=== PATIENT | female | born 1955 | race Caucasian/White ===

== ENCOUNTER 2016-03-27 11:19 | Inpatient (IN) | payer MEDICARE ==
[~2016-03-27] VITALS: Ht 157.5 cm; Wt 69.4 kg
[~2016-03-27 11:19] MED LIST: ALDACTONE25 MG PO; BOUDREAUXS113 GM TP; CARAFATE1 G PO; DIFLUCAN100 MG PO; ELIQUIS2.5 MG PO; FLAGYL500 MG PO; K-DUR20 MEQ PO; LACTINEX C1 TAB.CHEW PO; LASIX20 MG PO; LASIX40 MG PO; LOPRESSOR25 MG PO; LOTRISONE CREAM45 GM TP; MAG-OXIDE400 MG PO; MELATONIN 3 MG1 TAB PO; MS CONTIN15 MG PO; MYCOSTATIN 500,05 ML PO; NEURONTIN 100100 MG PO; NEURONTIN 400400 MG PO; PEPCID20 MG PO; PERCOCET 5-3251 TAB PO; PHOS-NAK PAC1 PACKET PO; TYLENOL PM1 TAB PO; VENTOLIN HFA18 GM INH; [UNRECOGNIZED DRUG - OTHER] PO
[2016-03-27 13:07] LABS: BASOPHILS 0.1 % (0.0-2.0); EOSINOPHILS 0.6 % (0-7); HEMATOCRIT 34.2 % (36.0-48.0); HEMOGLOBIN 11.1 g/dL (12-16); IMMATURE GRANULOCYTES 0.1 % (0-5); LYMPHOCYTES 20.9 % (15-50); MCH 31.4 pg (26.0-34.0); MCHC 32.5 g/dL (31.0-37.0); MCV 96.9 fL (80.0-100.0); MEAN PLATELET VOLUME 9.1 fL (7.4-10.4); MONOCYTES 5.8 % (2-11); NEUTROPHILS 72.5 % (40-80); RBC 3.53 10x6/uL (4.00-5.40); RDW 14.5 % (11.5-14.5); WBC 8.9 10x3/uL (4.8-10.8)
[2016-03-27 13:14] LABS: PLATELET COUNT 208 10x3/uL (130-400)
[2016-03-27 13:15] LABS: APTT 24.2 SECONDS (22.8-39.4); INR 1.07 (0.85-1.17); PROTIME 13.7 SECONDS (11.6-15.0)
[2016-03-27 13:19] LABS: ALBUMIN 3.1 g/dL (3.4-5.0); ALKALINE PHOSPHATASE 75 U/L (46-116); ALT (SGPT) 10 U/L (10-68); BILIRUBIN - TOTAL 0.26 mg/dL (0.2-1.3); CALC OSMOLALITY 272 mosm/kg (275-300); CALCIUM 8.4 mg/dL (8.5-10.1); CARBON DIOXIDE 25.8 mmol/L (21.0-32.0); CHLORIDE - SERUM 103 mmol/L (98-107); CREATININE - SERUM 0.7 mg/dL (0.6-1.3); GLUCOSE 89 mg/dL (74-106); POTASSIUM - SERUM 4.1 mmol/L (3.5-5.1); PROTEIN - SERUM 7.2 g/dL (6.4-8.2); SODIUM 137 mmol/L (136-145); UREA NITROGEN 13 mg/dL (7-18); eGFR NON AFRICAN AMERICAN 90 mL/min (90-120)
--- NOTE | 2016-03-27 15:00 | NUR ---
RECIEVED PT TO ROOM 2208 FROM ER WITH NOTED FX OF FEMORAL HEAD PAIN UNCONTROLLED AT TIME OF TRANSFER FROM ER. ER NURSE STATED SHE HAD TOTAL OF 8 MG MORPHINE ON BOARD WITH LITTLE PAIN RELEIF. NEW ORDERS FROM DR MORENO FOR DILAUDID FIREARMS INSPECTOR 0.2 MG EVERY 10 MIN 4MG 4 HR LOCKOUT. PEDAL AND POPLITEAL PULSES INTACT. SPOUSE AT SIDE.
[2016-03-27 15:20] VITALS: Ht 157.5 cm; Wt 69.4 kg
[2016-03-27 16:45] VITALS: BP 117/63
--- NOTE | 2016-03-27 18:28 | NUR ---
PT GIVEN NORCO 10/325 PO FOR BREAKTHROUGH PAIN PER ORDER. GIVEN AT 1745 WITH NOTED EFFECTIVENESS.
[2016-03-27 20:30] VITALS: BP 109/57
[2016-03-28] VITALS (15 sets, daily range): BP systolic 74–124; BP diastolic 44–71
--- NOTE | 2016-03-28 07:25 | NUR ---
PATIENT RECEIVED ALERT IN MID [place] POSITION. RESPIRATIONS EVEN AND UNLABORED. ANTICIPATING SURGERY TODAY. RATES PAIN 4/10. MEDICAL STENOGRAPHER BUTTON IN REACH. DENIES NEEDS. SIDE RAILS UP X2. BED IN LOW POSITION. CALL LIGHT IN REACH.
--- NOTE | 2016-03-28 07:42 | NUR ---
PATIENT OFF FLOOR TO SURGERY VIA BED
--- NOTE | 2016-03-28 10:30 | NUR ---
PATIENT BACK TO ROOM FROM PACU VIA BED. NO SIGNS OF DISTRESS NOTED. VITAL SIGNS STABLE. FAMILY PRESENT. SIDE RAILS UP X3. BED IN LOW POSITION. CALL LIGHT AND PUBLIC INFORMATION RELATIONS MANAGER BUTTON IN REACH. SCDS ON BILATERALLY. ICE PACK TO LEFT HIP. WILL CONTINUE TO MONITOR.
[2016-03-28] MEDS ORDERED: NEURONTIN 300300 MG PO (10:37)
[2016-03-28] MEDS ORDERED: PROBIOTIC1 EAC1 PO (10:37)
--- NOTE | 2016-03-28 12:20 | NUR ---
ALERT IN HIGH LORENZO POSITION TALKING ON PHONE. NO SIGNS OF DISTRESS NOTED. SIDE RAILS UP X2. BED IN LOW POSITION. CALL LIGHT IN REACH.
--- NOTE | 2016-03-28 16:15 | NUR ---
500CC NS BOLUS INITIATED PER ORDER. DENIES NEEDS. SIDE RAILS UP X2. BED IN LOW POSITION. CALL LIGHT IN REACH.
[2016-03-28 16:38] LABS: BASOPHILS 0 % (0.0-2.0); EOSINOPHILS 0 % (0-7); IMMATURE GRANULOCYTES 0.3 % (0-5); LYMPHOCYTES 8.3 % (15-50); MCH 31.5 pg (26.0-34.0); MCHC 31.8 g/dL (31.0-37.0); MEAN PLATELET VOLUME 9.4 fL (7.4-10.4); MONOCYTES 7.4 % (2-11); PLATELET COUNT 188 10x3/uL (130-400); RDW 14.2 % (11.5-14.5); WBC 9.1 10x3/uL (4.8-10.8)
[2016-03-28 16:39] LABS: HEMATOCRIT 26.4 % (36.0-48.0); HEMOGLOBIN 8.4 g/dL (12-16); MCV 98.9 fL (80.0-100.0); RBC 2.67 10x6/uL (4.00-5.40)
--- NOTE | 2016-03-28 17:04 | NUR ---
BOLUS COMPLETE. BP 101/59
[2016-03-29] VITALS: BP 109/49
--- NOTE | 2016-03-29 03:48 | NUR ---
ASSESSED AT THE BEGINNING OF THE SHIFT. PT IS ALERT AND ORIENTED, ABLE TO VERBALZIE NEEDS. SHE HAD HER LEFT HIP DONE THIS DAY AND THE DRESSING IS DRY AND INTACT WITH NO DRAINAGE NOTED. SHE HAS A MYSQL DATABASE DEVELOPER FOR PAIN CONTROL AND STATED THAT SHE IS NOT HAVING A LOT OF PAIN. WE ARE ASSISITN HER WITH TURNING FOR COMFORT AND SHE HAS A SIMPSON FOR VOIDING. ALL MEDS HAVE BEEN TAKEN AND AT MIDNIGHT SHE WAS SLEEPING SO WE HELD THE TYLENOL. THE BED IS LOW, RAILS UP X'S 2 WITH THE CALL LIGHT AT HAND.
[2016-03-29 04:00] VITALS: BP 104/56
[2016-03-29 05:09] LABS: BASOPHILS 0 % (0.0-2.0); EOSINOPHILS 0.1 % (0-7); HEMATOCRIT 24.5 % (36.0-48.0); HEMOGLOBIN 7.9 g/dL (12-16); LYMPHOCYTES 20.8 % (15-50); MCH 31.9 pg (26.0-34.0); MCHC 32.2 g/dL (31.0-37.0); MCV 98.8 fL (80.0-100.0); MEAN PLATELET VOLUME 9.5 fL (7.4-10.4); NEUTROPHILS 65.1 % (40-80); PLATELET COUNT 182 10x3/uL (130-400); RBC 2.48 10x6/uL (4.00-5.40); RDW 14.5 % (11.5-14.5); WBC 8.5 10x3/uL (4.8-10.8)
[2016-03-29 05:39] LABS: ALBUMIN 2.4 g/dL (3.4-5.0); ALKALINE PHOSPHATASE 53 U/L (46-116); ALT (SGPT) 12 U/L (10-68); CALCIUM 7.4 mg/dL (8.5-10.1); CARBON DIOXIDE 25.6 mmol/L (21.0-32.0); CHLORIDE - SERUM 104 mmol/L (98-107); CREATININE - SERUM 0.7 mg/dL (0.6-1.3); GLUCOSE 104 mg/dL (74-106); POTASSIUM - SERUM 3.9 mmol/L (3.5-5.1); PROTEIN - SERUM 6.1 g/dL (6.4-8.2); SODIUM 138 mmol/L (136-145); eGFR NON AFRICAN AMERICAN 90 mL/min (90-120)
[2016-03-29 05:40] LABS: CALC OSMOLALITY 273 mosm/kg (275-300); UREA NITROGEN 8 mg/dL (7-18)
--- NOTE | 2016-03-29 07:20 | NUR ---
PATIENT RECEIVED ALERT IN HIGH LORENZO POSITION WATCHING TV. RESPIRATIONS EVEN AND UNLABORED. SIDE RAILS UP X2. BED IN LOW POSITION. CALL LIGHT IN REACH. DENIES NEEDS.
--- NOTE | 2016-03-29 08:35 | NUR ---
PATIENT ALERT IN HIGH LORENZO POSITION EATING BREAKFAST. TOLERATING WELL. SCHEDULED MEDICATION ADMINISTERED. SIDE RAILS UP X2. BED IN LOW POSITION. CALL LIGHT IN REACH.
--- NOTE | 2016-03-29 09:00 | NUR ---
SIMPSON CARE PROVIDED. SIMPSON D/C. APPROXIMATELY 700CC URINE REMAINED IN COLLECTION BAG. WELL TOLERATED. WILL CONINUE TO MONITOR OUTPUT
[2016-03-29 09:39] VITALS: BP 89/45
--- NOTE | 2016-03-29 11:15 | NUR ---
SITTING UP IN CHAIR ALERT. NO SIGNS OF DISTRESS NOTED. RATES PAIN 03/31. SCHEDULED MEDICATION ADMINISTERED. CALL LIGHT IN REACH. DENIES NEEDS.
[2016-03-29 12:46] VITALS: BP 93/42
--- NOTE | 2016-03-29 15:05 | NUR ---
PATIENT ALERT IN BED WATCHING TV. NO SIGNS OF DISTRESS NOTED. DENIES PAIN AND OTHER NEEDS. SIDE RAILS UP X2. BED IN LOW POSITION. CALL LIGHT IN REACH.
[2016-03-29 16:42] VITALS: BP 89/42
--- NOTE | 2016-03-29 17:15 | NUR ---
ASSISTED UP TO RESTROOM. VOIDED APPROXIMATELY 300CC WITHOUT DIFFICULTY. ASSISTED TO CHAIR AT BEDSIDE. DENIES NEEDS. CALL LIGHT IN REACH.
--- NOTE | 2016-03-29 19:15 | NUR ---
RECIEVES SHIFT REPORT. PT IS LYING IN BED. ALERT AND ORIENTED AND ABLE TO VERBALIZE NEEDS. IV IS PATENT AND SALINE LOC AT THIS TIME. O2 @ 1 PER NASAL CANNULA. DRESSING TO LEFT HIP C/D/I. SCD'S ON. PT IS AMBULATORY WITH ASSISTANCE. PT STATES PAIN IS 1/10. NO NEEDS ARE VERBALIZED AT THIS TIME. WILL CONTINUE TO MONITOR. SIDE RAILS ARE UP X 2. BED IS IN LOWEST POSITION. CALL LIGHT IS WITHIN REACH.
[2016-03-29 21:00] VITALS: BP 93/49
--- NOTE | 2016-03-29 21:27 | NUR ---
SHIFT ASSESSMENT COMPLETED. NIGHT MEDS GIVEN WITH NO PROBLEMS. NO NEEDS ARE VOICED. WILL MONITOR. SIDE RAILS X 2. BED LOW. CALL LIGHT IN REACH.
[2016-03-30 01:00] VITALS: BP 92/59
--- NOTE | 2016-03-30 02:21 | NUR ---
PT C/O PAIN 05/29. ADMINISTERED PRESCRIBED PRN OXY IR 5MG PER ORDER. DENIES FURTHER NEEDS. WILL MONITOR. SIDE RAILS X 2. BED LOW. CALL LIGHT IN REACH.
[2016-03-30 05:00] VITALS: BP 123/61
[2016-03-30 06:33] LABS: BASOPHILS 0 % (0.0-2.0); EOSINOPHILS 0.9 % (0-7); HEMATOCRIT 23.1 % (36.0-48.0); IMMATURE GRANULOCYTES 0.1 % (0-5); LYMPHOCYTES 26.5 % (15-50); MCH 31.5 pg (26.0-34.0); MCHC 31.6 g/dL (31.0-37.0); MCV 99.6 fL (80.0-100.0); NEUTROPHILS 60.5 % (40-80); PLATELET COUNT 206 10x3/uL (130-400); RBC 2.32 10x6/uL (4.00-5.40)
[2016-03-30 06:45] LABS: HEMOGLOBIN 7.3 g/dL (12-16)
[2016-03-30] MEDS ORDERED: ELIQUIS2.5 MG PO (08:02)
[2016-03-30] MEDS ORDERED: OXYCODONE HCL5 MG PO (08:03)
[2016-03-30 08:15] VITALS: BP 97/48
[2016-03-30] MEDS ORDERED: OXYCONTIN10 MG PO (08:15)
--- NOTE | 2016-03-30 08:26 | NUR ---
SCHEDULED MEDICATIONS ADMINISTERED AT THIS TIME. PAIN LEVEL 1/10 AT THIS TIME IN PT'S BACK. OXYGEN WEANED DOWN TO ROOM AIR. SATURATIONS REMAIN 94-95%. PT TO D/C HOME TODAY. DENIES FURTHER NEEDS. CALL LIGHT IN REACH, BED ALARM AND SCD'S ON. WILL CONTINUE WITH PLAN OF CARE.
--- NOTE | 2016-03-30 10:21 | NUR ---
Patient Name: AURORA TATE Admission Status: ER Accout number: [id number] Admission Date: 03-27-2016 : 1955 Admission Diagnosis: Attending: DODIE Current LOS: 3 Anticipated DC Date: 03-30-2016 Planned Disposition: Home Primary Insurance: MEDICARE A & B Discharge Planning Comments: CM SPOKE WITH PATIENT REGARDING D/C NEEDS AND PLANS. PATIENT STATED SHE LIVES WITH HER SPOUSE (RADHA) AND HE WILL PICK HER UP AT DISCHARGE. PATIENT STATED HER HOME HAS 6 STEPS W/RAILS TO ENTER AND NO STAIRS INSIDE. PATIENT IS INDEPENDENT WITH HER CARE AND HAS A WALKER, CANE, SHOWER CHAIR, AND BEDSIDE COMMODE AT HOME. PATIENTS PCP IS DR. DUKES AND PHARMACY IS [facility] [address]. PATIENT HAD HOME HEALTH WITH HER LAST HIP SURGERY BUT HAS REFUSED HOME HEALTH THIS TIME. PATIENT IS AGREEABLE FOR OP PT WITH [facility] AND HAS AN APPOINTMENT AT 2:00PM TOMORROW. CM WILL CONTINUE TO FOLLOW PATIENT WITH D/C NEEDS AND PLANS. PCP DR[facility]- [phone] RADHA (SPOUSE) [phone] [facility]- [phone] Fish Grader: Ashlie Mackenzie Is the patient Alert and Oriented? Yes 0 * How many steps to enter\exit or inside your home? 6 /RAILS 0 * PCP DR. DUKES 0 * Pharmacy [facility] [address] 0 * Preadmission Environment Home with Family 0 * ADLs Independent 0 * Equipment Bedside Commode Cane Rolling Walker Shower Chair 0 * List name and contact numbers for known caregivers / representatives who currently or will assist patient after discharge: RADHA (SPOUSE) [phone] 0 * Community resources currently utilized None 0 * Additional services required to return to the preadmission environment? Yes 0 * Can the patient safely return to the preadmission environment? Yes 0 * Has this patient been hospitalized within the prior 30 days at any hospital? No 0 Grand Total: 0
--- NOTE | 2016-03-30 11:21 | NUR ---
IV TO RIGHT FOREARM REMOVED WITH CATH TIP INTACT. DISCHARGE INSTRUCTIONS REVIEWED WITH PT AND HER . DENIES QUESTIONS OR CONCERNS. EXISTING DRESSING TO LEFT HIP REMOVED AND AQUACEL AG DRESSING PLACED OVER INCISION IN A STERILE FASHION. INSTRUCTED PT TO LEAVE DRESSING ON FOR 7 DAYS. PT VERBALIZED UNDERSTANDING. WILL NOTIFY NURSING STAFF WHEN SHE IS DRESSED AND READY FOR DISCHARGE.
--- NOTE | 2016-03-30 11:34 | NUR ---
D/C HOME AT THIS TIME VIA PRIVATE VEHICLE WITH SPOUSE THE HUMAN SERVICES SUPERVISOR. ESCORTED OUT VIA WHEELCHAIR.
--- NOTE | 2016-04-02 08:03 | OP ---
PATIENT NAME: AURORA TATE MEDICAL RECORD: [id number] :51 LOCATION:[id number] ADMISSION DATE:03/27/16 SURGEON: KEYUR GARCIA MD DATE OF OPERATION: 03/27/2016 PREOPERATIVE DIAGNOSIS: Left hip degenerative joint disease/femoral neck fracture. POSTOPERATIVE DIAGNOSIS: Left hip degenerative joint disease/femoral neck fracture. PROCEDURE PERFORMED: Left total hip arthroplasty. SURGEON: Tevin Garcia MD ANESTHESIA: General with a block for postop pain. ESTIMATED BLOOD LOSS: She had about 200 mL via EBL. CONDITION: She tolerated the procedure well, was transferred to recovery room in stable condition. INDICATIONS: This is a 60-year-old female that was scheduled in the near future for hip replacement, presented yesterday with a femoral neck fracture. Certainly, unclear etiology as to this, there did not appear to be any lesions, cannot think of any specific trauma. We discussed the options. She wanted to go and proceed with a hip replacement at this juncture. Discussed risks, benefits, and alternatives including blood loss, scar, pain, need for further procedure, anesthesia risks, nerve, artery and vein injuries, PE, DVT, and . She understood and wished to proceed. OPERATIVE REPORT: The patient was taken to the operating room, placed in supine position. General anesthesia was obtained. She did get the block in the preop holding area. Once she was in the room. She was confirmed to be on the left side. She was given Ancef per protocol. She was then placed in lateral position after timeout was done with the left hip up. Left hip was prepped and draped in normal fashion followed by a secondary ChloraPrep and Ioban dressing placement. Once this was accomplished, a lateral incision was made. This was taken down to the IT band. The IT band was split. Charnley retractor was placed. Anterior portion of the gluteus medius and capsule were taken off as a unit. I then proceeded ____ dislocate the hip sleep and made a cleanup cut on the femoral neck and placed anterior and posterior acetabular retractors and then took out the femoral head. I then took off the soft tissue from about the acetabular rim. I then proceeded to ream up to a 51 and placed a 50 trial cup, this felt very good. I therefore placed a 52 cup. I then took the leg outside the bed, did a cookie cutter and canal finder opening up the femoral canal. I then broached up to a 12, trial this, took x-rays this looked appropriate, it was slightly short, but I did used the -3. Therefore, I went ahead and plant on standard. Everything was taken out. She was copiously irrigated, I then placed a 12 stem with standard head and neck, reduce this after irrigation. I then used 2 JuggerKnot suture anchors to bring the gluteus medius and capsule back to the bone. I then closed this, following which I closed with #1 barbed PDS, then 2-0 Vicryl, then avelina. She was awakened and transferred to recovery room in stable condition, having tolerated the procedure well. OPERATIVE REPORT [id number] AURORA TATE TRANSINT:[id number] Voice Confirmation ID: [id number] DOCUMENT ID: [id number] KEYUR GARCIA MD at 0803 CC: [id number] DICTATION DATE: 03/28/16 0959 DICE TABLE PERSON: 03/28/16 1020 DIS IN 03/30/16 [facility] [address] [place] [address]
--- NOTE | 2016-04-02 08:03 | DS ---
PATIENT:AURORA TATE :[birth year] MEDICAL RECORD: [id number] DISCHARGE SUMMARY ADMISSION DATE: 03/27/16 DISCHARGE DATE: 03/30/16 DATE OF ADMISSION: 03/27/2016 DATE OF DISCHARGE: 03/30/2016 ADMITTING DIAGNOSES: Left hip degenerative joint disease/femoral neck fracture. DISCHARGE DIAGNOSES: Left hip degenerative joint disease/femoral neck fracture plus postoperative acute blood loss anemia. HISTORY OF PRESENT ILLNESS: A 60-year-old female with advanced degenerative changes of her hip. She was actually getting prepped for a total hip arthroplasty, who presented on Wednesday with hip fracture. No significant trauma. We discussed options and elected to take her for total hip arthroplasty on Wednesday. She did well with this procedure. She has gotten into a juncture now, where she has progressed enough that it look like she can be discharged home. We will discharge her on post-total hip arthroplasty protocols. Her blood is a little bit low, but we will leave ____. She has not been significantly symptomatic and we will see her back in the office in about 2 weeks, call is she having problems. Discharge diagnoses, hip degenerative joint disease and postoperative acute blood loss anemia. TRANSINT:[id number] Voice Confirmation ID: [id number] DOCUMENT ID: [id number] KEYUR LAFLEUR MD at 0803 CC: [id number] DICTATION DATE: 03/30/16 08 DATA BASE DESIGN ANALYST: 03/30/16 0824 DIS IN 03/30/16 [place] [address]
== END 2016-03-30 11:34 | disposition home or self-care (01) | DRG 470 ==
LOC: D.ER 11:19 → D.MS 13:51
PROVIDERS: Emergency Medicine; Family Medicine Adult Medicine; ADMIT Orthopaedic Surgery Sports Medicine
PROC: 0SRB0JZ Replacement of Left Hip Joint with Synthetic Substitute, Open Approach (ICD-10-PCS; principal; 2016-03-27)
DX: M80.052A Age-related osteoporosis with current pathological fracture, left femur, initial encounter for fracture (principal); D62 Acute posthemorrhagic anemia; M16.12 Unilateral primary osteoarthritis, left hip; J44.9 Chronic obstructive pulmonary disease, unspecified; Z87.891 Personal history of nicotine dependence

== ENCOUNTER 2016-10-16 11:20 | Inpatient (IN) | payer MEDICARE ==
[2016-03-27 15:20] VITALS: BMI 25.6
[~2016-10-16 11:20] MED LIST changes: +NEURONTIN 300300 MG PO; +OXYCODONE HCL5 MG PO; +OXYCONTIN10 MG PO; +PROBIOTIC1 EAC1 PO
[2016-10-16] MEDS ORDERED: ALENDRONATE SOD70 MG PO (14:19)
[2016-10-16 15:05] LABS: BASOPHILS 0.2 % (0-2); EOSINOPHILS 0.9 % (0-7); HEMATOCRIT 38.6 % (36.0-48.0); HEMOGLOBIN 12.6 g/dL (12-16); IMMATURE GRANULOCYTES 0.2 % (0-5); LYMPHOCYTES 24.9 % (15-50); MCH 31.3 pg (26.0-34.0); MCHC 32.6 g/dL (31.0-37.0); MCV 95.8 fL (80.0-100.0); MEAN PLATELET VOLUME 10.2 fL (7.4-10.4); MONOCYTES 6.8 % (2-11); PLATELET COUNT 214 10x3/uL (130-400); RBC 4.03 10x6/uL (4.00-5.40); RDW 14.9 % (11.5-14.5); WBC 11.1 10x3/uL (4.8-10.8)
[2016-10-16 15:29] LABS: CALC OSMOLALITY 281 mosm/kg (275-300); CARBON DIOXIDE 31.7 mmol/L (21.0-32.0); CHLORIDE - SERUM 103 mmol/L (98-107); CREATININE - SERUM 0.5 mg/dL (0.6-1.3); GLUCOSE 96 mg/dL (74-106); POTASSIUM - SERUM 3.7 mmol/L (3.5-5.1); SODIUM 141 mmol/L (136-145); UREA NITROGEN 14 mg/dL (7-18); eGFR NON AFRICAN AMERICAN > 90 mL/min (90-120)
--- NOTE | 2016-10-16 18:57 | NUR ---
POP BLOCK FOR PROCEEDURE
[2016-10-16 19:29] VITALS: BP 124/36
[2016-10-16 20:00] VITALS: BP 84/48
--- NOTE | 2016-10-16 20:18 | NUR ---
2000)REC'D. TO RM. 2209 VIA BED FROM REC.RM. ALERT ORIENTED X3.SITTING UP IN BED ICE CHIPS TAKEN.KNEE IMMOB.TO LEFT KNEEFOOT WARM PEDAL PULSE PRESENT.UNABLE TO WIGGLES TOES OR DORSIFLEX DUE TO PRE-OP BLK.BP NOW 117/69. WILL CONTINUE TO MONITOR FOR ANY CHGES. IN NEUROVASCULAR STATUS AND FOLLOW CURRENT PLAN OF CARE.
[2016-10-17] VITALS: BP 102/55
[2016-10-17 04:00] VITALS: BP 121/65
[2016-10-17 05:25] LABS: HEMATOCRIT 36.4 % (36.0-48.0); HEMOGLOBIN 11.8 g/dL (12-16)
--- NOTE | 2016-10-17 07:30 | NUR ---
ASSESSMENT COMPLETE. IV TO L AC PATENT. NS INFUSING AT 100 CC/HR VIA PUMP.ELIGIO WRAP DRESSING INTACT TO L KNEE. IMMOBILIZER IN USE TO L KNEE. O2 2L NC IN USE. SCD IN USE TO R LEG.
[2016-10-17 08:02] VITALS: BP 110/62
[2016-10-17] MEDS ORDERED: ATARAX 25 MG TA25 MG PO (08:16)
[2016-10-17] MEDS ORDERED: OXYCODONE HCL5 MG PO (08:16)
--- NOTE | 2016-10-17 08:19 | OP ---
PATIENT NAME: AURORA KOLB MEDICAL RECORD: [id number] :51 LOCATION:[id number] ADMISSION DATE:10/16/16 SURGEON: KP CHAVES, DATE OF OPERATION: 10/16/2016 PROCEDURE PERFORMED: A left lateral tibial plateau open reduction and internal fixation, knee. PREOPERATIVE DIAGNOSIS: Left lateral tibial plateau fracture. POSTOPERATIVE DIAGNOSIS: Left lateral tibial plateau fracture and left MCL strain. INDICATIONS: Ms. Kolb is a 61-year-old female who fell in a hole today near her well. She could not bear weight well on her left leg and has had extreme amount of pain and was taken to the Emergency Room. In the Emergency Room, she was seen and noted to have a left lateral tibial plateau fracture that was split right just over 3 mm. She had an articular split. After discussing treatments with the patient, it was decided that operative fixation would be the best way to treat this. Preoperative and postoperative protocols were discussed with the patient as well as risks and benefits of the procedure and she consented to undergo a left lateral tibial plateau open reduction internal fixation. SURGEON: Kp Chaves D.O. ASISTANT: No assistance. DESCRIPTION OF PROCEDURE: Ms. Kolb was given a popliteal block in the preoperative area and then taken back to the operating room. She was then placed in supine position on the OR bed and given general anesthesia by Anesthesia. The left lower extremity was then prepped and draped in sterile fashion. A tourniquet was placed above the knee prior to draping. A timeout was performed and all parties were in agreement, so there was correct site and side, and all parties agreed with the correct patient and she was given 2 grams of Ancef prior to beginning the surgery. At that time the incision was marked out and an Esmarch was used to exsanguinate the left lower extremity and the tourniquet was inflated. Incision was then made in a hockey stick pattern on the lateral side of the proximal tibia to just proximal to the knee joint. Careful dissection was made down through the skin to the fascia and the iliotibial band at that level which was split sharply down to the proximal tibia at the fracture site. Fracture site was then cleaned off and a submeniscal arthrotomy was performed into the knee joint. At that time, a large amounts of hematoma were drained from the knee joint itself. At the submeniscal arthrotomy site, there was made a horizontal incision just below the lateral meniscus. 2-0 Vicryls were placed into the lateral meniscus to elevate it and to inspect in the joint. There were no meniscal tears seen in the lateral meniscus at that time and the joint depression was noted in the posterior aspect of the fracture. At that time the fracture was then reduced using a periarticular forceps with a plate and K-wires placed through the plate. An x-ray was taken and a reduction was performed one more time. This time, the fracture site was cleaned out more thoroughly and the reduction was made and the articular surface was noted to be reduced and 2 K-wires were placed just in the subchondral bone of the lateral plateau. The plate was then placed on the lateral aspect just over the fracture site and K-wires were placed in the plate at that time as well as the periarticular reduction clamp placed in the plate to hold the reduction and the OPERATIVE REPORT [id number] AURORA KOLB plate in place. Cortical screws were then used to secure the plate to the bone and to reduce the fracture. Locking screws were used in the proximal holes to that across the subchondral bone area. A distal locking screw was then placed into the plate and the bone, the very distal hole and the kickstand screws were placed at that time. The cortical screws were then revisited and 2 of the cortical screws were replaced with locking screws. The clamps were removed at that time and the joint was irrigated with copious amounts of normal saline as well as the wound. All the hardware was placed using fluoroscopic guidance. The site of the arthrotomy was then repaired using 0 Vicryl and the sutures were taken out of the lateral meniscus prior to that. Once the arthrotomy was repaired, more irrigation was used and the soft tissue, fascia as well with the IT band was closed over the plate with a 0 Vicryl. The wound was then irrigated again and the skin was closed with 2-0 Vicryl in inverted interrupted fashion and 4-0 Monocryl was run subcuticularly on the skin. The tourniquet was then let down at that time at 91 minutes. Pressure was held over the wounds to stop any of the oozing. In the site of the medial side where the periarticular force a reduction clamp, an incision then made for it was also closed using inverted interrupted 4-0 Monocryl. Steri-Strips were then placed over the wound. Adaptic, 4 x 4's, ABD and Webril was then placed and an Silverio wrap was placed over the knee itself and the patient's knee was tested prior to this after the fixation The skin was closed and noted to have a grade II MCL strain. Then, the knee immobilizer was placed. The patient as well as all the dressings were secured and the patient was awake and in stable condition and taken to PACU for recovery. Total blood loss was 100 mL. TRANSINT:[id number] Voice Confirmation ID: [id number] DOCUMENT ID: [id number] KP CHAVES DO at 0819 CC: [id number] DICTATION DATE: 10/16/161936 SHOPFITTER: 10/17/16236 ADM IN [facility] [address] [id number]
[2016-10-17] MEDS ORDERED: KEFLEX500 MG PO (08:21)
--- NOTE | 2016-10-17 09:56 | NUR ---
UP AMBULATING WITH PHYSICAL THERAPY. DENIES ANY NEEDS AT PRESENT.
--- NOTE | 2016-10-17 11:50 | NUR ---
IV REMOVED. CATHETER TIP INTACT. DISCHARGE TEACHING GIVEN TO PATIENT AND . SCRIPTS X 2 GIVEN TO . WALKER DELIVERED.
--- NOTE | 2016-10-17 12:05 | NUR ---
DC'D HOME WITH FAMILY. ESCORTED TO VEHICLE VIA WC BY PATTERNMAKER HAND WITH BELONGINGS AND WALKER.
--- NOTE | 2016-10-17 12:59 | NUR ---
Is the patient Alert and Oriented? Yes 0 * How many steps to enter\exit or inside your home? five 0 * PCP DR Vaughan 0 * Pharmacy [facility] on [address] 0 * Preadmission Environment Home with Family 0 * ADLs Independent 0 * Equipment Walker 0 * Other Equipment Raised toilet seat, bulit in shower chair, safety bars in shower 0 * List name and contact numbers for known caregivers / representatives who currently or will assist patient after discharge: Efren Kolb- [phone] 0 * Community resources currently utilized None 0 * Please name any agencies selected above. N/A 0 * Additional services required to return to the preadmission environment? No 0 * Can the patient safely return to the preadmission environment? Yes 0 * Has this patient been hospitalized within the prior 30 days at any hospital? Yes 0
--- NOTE | 2016-10-17 14:01 | NUR ---
Late Entry 0950 CM met with patient post physical therapy. She had ambulated with the therapist and walker.Patient had practiced on the stairs as she has 5 steps to enter her home. She reportedly did well. She states she felt comfortable regarding stair climbing. Her , Efren , will provide transportation to home. She denies any need for additional assistance. PCP- DR Vaughan [facility] [address]. Patient has a raised toilet seat, built in shower bench w/ safety bars in her shower. She will need a walker. Had no preferred provider. [facility] to [facility]. Spoke with the on-call, Harmony Vivian. Faxed face sheet, MD order, Op report and H/P for billing. Face sheet w/ patient's ht and wt. Mrs Park attempted to call patient's room regarding patient's cost for the walker. Her phone was not working. She nor her had their cell phones. CM explained patient would have a $28.00 co/pay as Medicare reimburses for 80%. Patient did not have a secondary insurer. Patient and agreed they could afford that amount. Walker was delivered to the bedside. Patient was anxious for discharge to home. denied any other needs. Prescriptions were on her chart. She is to F/U with DR Stern next week.
== END 2016-10-17 12:05 | disposition home or self-care (01) | DRG 489 ==
LOC: D.OPS 11:20 → D.ER 11:20 → EDSTATUS 13:50 → D.MS 13:55
PROVIDERS: ADMIT Orthopaedic Surgery
PROC: 0SQD0ZZ Repair Left Knee Joint, Open Approach (ICD-10-PCS; 2016-10-16)
PROC: 0QSH04Z Reposition Left Tibia with Internal Fixation Device, Open Approach (ICD-10-PCS; principal; 2016-10-16 15:00)
DX: S82.142A Displaced bicondylar fracture of left tibia, initial encounter for closed fracture (principal); W17.2XXA Fall into hole, initial encounter

== ENCOUNTER 2016-12-22 05:20 | Day surgery (SDC) | payer MEDICARE ==
[2016-12-21 14:03] LABS: HEMATOCRIT 40.2 % (36.0-48.0); HEMOGLOBIN 13.2 g/dL (12-16); MCH 31.3 pg (26.0-34.0); MCHC 32.8 g/dL (31.0-37.0); MCV 95.3 fL (80.0-100.0); MEAN PLATELET VOLUME 9.5 fL (7.4-10.4); RBC 4.22 10x6/uL (4.00-5.40); WBC 8.6 10x3/uL (4.8-10.8)
[~2016-12-22 05:20] MED LIST changes: +ALENDRONATE SOD70 MG PO; +ATARAX 25 MG TA25 MG PO; +HYDROCODONE-APA1 TAB PO; +KEFLEX500 MG PO
[2016-12-22] MEDS ORDERED: ASPIRIN325 MG PO (06:06)
[2016-12-22] MEDS ORDERED: CALCIUM 500 + D1 TAB PO (06:06)
[2016-12-22 06:09] VITALS: BP 107/56; BMI 24.7
[2016-12-22] MEDS ORDERED: DURICEF500 MG PO (09:42)
[2016-12-22] MEDS ORDERED: PERCOCET 7.5/321 TAB PO (09:43)
--- NOTE | 2016-12-22 12:10 | NUR ---
1115 IV DC WITH CATHER TIP INTACT
--- NOTE | 2016-12-22 19:16 | OP ---
PATIENT NAME: AURORA KOLB MEDICAL RECORD: [id number] :53 LOCATION:[facility] ADMISSION DATE: SURGEON: JUN CHAVES DO DATE OF OPERATION: 12/22/2016 PROCEDURE PERFORMED: Left knee arthroscopy with partial medial meniscectomy, partial lateral meniscectomy, partial synovectomy, and MCL repair with InternalBrace augment. PREOPERATIVE DIAGNOSIS: Medial collateral ligament disruption. POSTOPERATIVE DIAGNOSES: Medial collateral ligament disruption with medial and lateral meniscal tears and synovitis of the left knee. Lateral tibial plateau chondromalacia. INDICATIONS: Ms. Kolb is a 61-year-old female, who underwent a lateral tibial plateau open reduction and internal fixation approximately little bit over 2 months ago. She sustained an MCL injury at that time, which documented in hopes that it would scar down, unfortunately that did not happen and her knee continued to collapse in the valgus. Once this was noted, she said she could not cope with it. After several weeks of bracing including off the freight unloader brace, she wanted it fixed. So, she was consented for the procedure. SURGEON: Jun Chaves DO SLURRY BLENDER: Alis Doan, advance nurse practitioner. DESCRIPTION OF PROCEDURE: The patient was given a block in the preoperative area and taken to the operative suite, placed in supine position, given general anesthetic and intubated. Once this was done, she is on the OR table. The left leg was identified, prepped and draped. Timeout was performed around the area. She was given a gram of Ancef preoperatively and everyone was in agreement with time-out and procedure commenced. We first began with examination of the knee, which had a drive-through sign with valgus stress at 30 degrees of flexion and extension. Once this was done, the knee was flexed and a 7 mL of Marcaine without epinephrine was injected into each of the proposed portal sites in the anterior knee. The lateral portal was established first using 11-blade scalpel and the scope was entered into the knee. Knee was brought into extension and the suprapatellar pouch was entered. A diagnostic arthroscopy was then began. The lateral pouch cannot be entered due to the synovitis and the medial gutter was then entered. The knee was then flexed and seen to open up a lot medially with valgus stress. The medial portal was established with an 11-blade scalpel. After an 18-gauge needle was entered, medial meniscal tear was encountered and the ACL was then probed and seemed to be taut. The lateral compartment was then entered and the posttraumatic chondromalacia was noted as well as meniscal tear on the medial middle horn of the lateral meniscus. A shaver was used to trim back the loose pieces. The meniscus was probed and seen to be stable. The medial compartment was then returned to and upbiter was used to trim out the meniscal tear on the medial side. Once this was done, the scope was entered into the suprapatellar pouch. The synovitis was then resected with a shaver. Once this was done, then excess fluid was drained out of the knee using suction and the scope was removed. Attention was then drawn to the MCL repair. An incision was made in the medial epicondyle of the femur down to 6 cm distal to the joint line on the tibia. The sartorial fascia was incised down to the OPERATIVE REPORT [id number] AURORA KOLB second layer. MCL was encountered and freed up on the tibial side, which was the side that had been disrupted. Once this was freed up, suture tacks were used, 2 of them placed in the tibia and the MCL was advanced on the tibia using the SutureTaks and tied down one anterior, one was more distal, and the posterior one was more proximal close to the joint line. Once this was done, the InternalBrace was used. The medial epicondyle was found and confirmed on x-ray. The SwiveLock anchor was placed with the InternalBrace posteriorly. The anterior limb was then brought down to the tibia and the knee was brought into 30s degrees of flexion and the SwiveLock was placed just over the MCL repair and about 6 cm distal to the joint line. Once this was done, some of the sutures that were from the SutureTacks were used and placed in the SwiveLock with the FiberTape of the InternalBrace. Then, the knee was brought into extension and the posterior limb of the FiberTape was then placed posterior to the previous SwiveLock in the tibia and similar suture limbs from the other SutureTak were placed in with this SwiveLock at the tibia approximately 6 cm from the joint line. Once this is done, the stability of the knee was tested and seemed to be stable with 30 degrees of flexion with a valgus stress with an endpoint as well as in extension. The MCL was then sutured more to the capsule using the extra FiberWire suture that was left over after being cut in a jzcuea-ru-swlxw fashion and stability was once again tested and seemed to be very stable with a good endpoint with valgus stress at 30 degrees of flexion. This was done under fluoroscopy and the medial compartment was not seen to open up extensively as prior to the repair. The wound was then irrigated copiously and the sartorial fascia was closed in srqoii-it-zusxm fashion with 0 Vicryl. Irrigation was then done again and the skin was closed with 2-0 Vicryl in an inverted interrupted fashion and a ZipLine was placed over the skin incision. The portals for the scope were closed with 4-0 Monocryl inverted interrupted fashion. A 4 x 4s and Tegaderm were then placed over the incisions and a Webril and 6-inch Silverio were placed over that and a knee high SAUL hose was placed over that. The patient was placed in her freight unloader brace and awakened and taken to recovery in stable condition. Blood loss approximately 50 mL. TRANSINT:[id number] Voice Confirmation ID: [id number] DOCUMENT ID: [id number] JUN CHAVES DO at 1916 CC: [id number] DICTATION DATE: 12/22/16 0956 POULTRY TRIMMER: 12/22/16 1132 [facility] 12/22/16 [facility] [address] [place] [address]
[2017-03-23] MEDS ORDERED: TYLENOL PM1 TAB PO (10:35)
== END 2016-12-22 11:45 | disposition home or self-care (01) ==
LOC: D.OPS 05:20 → D.PAN 07:30 → D.OPS 07:30 → D.PAN 11:15 → D.OPS 11:45
PROVIDERS: Anesthesiology
DX: S83.195A Other dislocation of left knee, initial encounter (principal); S83.282A Other tear of lateral meniscus, current injury, left knee, initial encounter; S83.242A Other tear of medial meniscus, current injury, left knee, initial encounter; Z01.812 Encounter for preprocedural laboratory examination

== ENCOUNTER → 2017-03-10 17:18 | Outpatient (CLI) | payer MEDICARE ==
[~2017-03-10 17:18] MED LIST changes: +ALENDRONATE SOD10 MG PO; +ASPIRIN325 MG PO; +CALCIUM 500 + D1 TAB PO; +DURICEF500 MG PO; +PERCOCET 7.5/321 TAB PO
== END | disposition home or self-care (01) ==
LOC: D.LABREF 17:18
DX: M17.12 Unilateral primary osteoarthritis, left knee (principal); Z11.8 Encounter for screening for other infectious and parasitic diseases

== ENCOUNTER 2017-03-24 10:00 | Inpatient (IN) | payer MEDICARE, MEDICAID ==
[~2017-03-24] VITALS: Ht 157.5 cm; Wt 61.2 kg
--- NOTE | ~2017-03-24 | OP ---
PATIENT NAME: AURORA KOLB MEDICAL RECORD: [id number] :53 LOCATION:D.[facility] [place].2224 ADMISSION DATE:03/30/17 SURGEON: KP CHAVES, DATE OF OPERATION: 03/30/2017 PROCEDURE PERFORMED: Removal of hardware, left proximal tibia and left total knee arthroplasty. 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 INDICATIONS: Ms. Kolb is a 61-year-old female who sustained a left lateral tibial plateau fracture in September, underwent open reduction internal fixation, she fell into a valgus deformity after that. She did have an MCL reconstruction to try to tighten it down, this failed as well. After this, it was noticed, she was tired of dealing with it as she did have arthritis noted on her x-rays, was posttraumatic over the lateral condyle and lateral tibial plateau, but she did have some arthritis in other parts of her knee with some osteophytes. After 6 months of struggling with this, she wanted something done and I agreed to do total knee and take out the hardware in the proximal tibia. DESCRIPTION OF PROCEDURE: The patient was taken to the operative suite, after receiving a block by anesthesia, given a gram of Ancef, laid in supine position, given general anesthetic, and intubated. The left lower extremity was prepped and draped in sterile fashion. Tourniquet was placed above the upper left thigh. Once this prepped and draped, a timeout was performed, everyone was in agreement of correct side, site, and patient. The patient was given a gram of TXA as well. The left lower extremity was then exsanguinated with an Esmarch and then the tourniquet was inflated. The procedure commenced with an incision over the prior incision for the tibial plateau fracture, careful dissection was made down to the plate, and it was removed. This was then thoroughly irrigated and then closed with #1 Vicryl in a running stitch with some rppowm-iz-yubzxs in between. The IT band was closed and then the skin was closed with 2-0 Vicryl in inverted interrupted fashion. We then marked out the knee and then put Ioban over it and the incision for the knee was just medial to the patella down through the skin down to the capsule. Capsulotomy was then performed with a fresh blade. The patella was everted after fat pad was taken down and milled down. Once this was done, the knee was flexed up and the intramedullary canal of the femur was entered with a drill and then the distal femoral guide was put into place, the distal femur was then cut, and then attention was drawn to the tibia. The knee was flexed all the way up and the tibia was exposed, cut 2 mm off the tibia. We then brought the knee into extension and extension block 10 fit. We then cut the femur and measured the femur rather with 3 degrees external rotation to be 67.5 and then a 4-in-1 block was [address] was cut and the device used to cut for the posterior stabilized section of the knee to take out for the post was put in and then this was cut. After this was done, bone was removed and the implant was put on the tibia and was exposed, needed to cut a little bit more tibia, so 2 more mm were taken off the tibia and seen to be well balanced knee at that point. The tibia was then exposed and 71 was seen to be the correct size, this was then drilled and punched with a prolonged stem due to the fracture site on the bypass site with good cement mantle. The tibia was then irrigated thoroughly and the cement was mixed and we placed at 71 on OPERATIVE REPORT [id number] AURORA KOLB L the tibia. This was impacted several times and excess cement was removed. We then cemented the femur, was thought to be poor bone quality on the femur and this was cemented as well and a poly was put in between them. The patella was then everted and we had to mix some more cement and the patella was cemented into place and held in place. Tourniquet was let down at 104 minutes and any bleeders were coagulated at that time with the plasma knife. Once the cement had dried, the screws for the toe was removed and the knee was tested and the tensing poly seemed to be very good fit and the 10 poly posterior stabilized, poly was put into place. After this was done, the tibial tray poly locker was put into place and the knee was thoroughly irrigated. The knee was flexed up. Capsule was closed with #1 Vicryls in a ayiwzd-uu-rekkc fashion. Prior to that, Shad was put into the knee after it was dried and then the capsule was closed and then more Shad was put on the capsule and the skin was closed with 2-0 Vicryl in an inverted interrupted fashion and a ZipLine was placed over both incisions and then Adaptic, 4 x 4s, ABD, Webril, and Silverio wrap were placed over the knee and then a stocking was placed up to the knee. The patient was awakened and taken to recovery in stable condition. ESTIMATED BLOOD LOSS: Approximately 150 mL. TOURNIQUET TIME: 104 minutes. COMPLICATIONS: None. TRANSINT:[id number] Voice Confirmation ID: [id number] DOCUMENT ID: [id number] KP CHAVES DO at 1931 CC: [id number] DICTATION DATE: 03/30/17 1049 MEASURING MACHINE OPERATOR: 03/30/17 1228 ADM IN [facility] [address] [place] [address]
[~2017-03-24 10:00] MED LIST changes: -ALENDRONATE SOD10 MG PO
[2017-03-24 11:30] LABS: BASOPHILS 0.1 % (0-2); EOSINOPHILS 0.8 % (0-7); HEMATOCRIT 42.6 % (36.0-48.0); HEMOGLOBIN 13.8 g/dL (12-16); IMMATURE GRANULOCYTES 0.2 % (0-5); LYMPHOCYTES 34.4 % (15-50); MCH 31.2 pg (26.0-34.0); MCHC 32.4 g/dL (31.0-37.0); MCV 96.4 fL (80.0-100.0); MONOCYTES 6.4 % (2-11); NEUTROPHILS 58.1 % (40-80); PLATELET COUNT 260 10x3/uL (130-400); RBC 4.42 10x6/uL (4.00-5.40); RDW 14.8 % (11.5-14.5); WBC 8.7 10x3/uL (4.8-10.8)
[2017-03-24 11:37] LABS: APPEARANCE SLT CLOUDY (CLEAR); BACTERIA MANY /hpf (NONE SEEN); BILIRUBIN NEGATIVE (NEGATIVE); COLOR YELLOW (YELLOW); GLUCOSE NEGATIVE (NEGATIVE); KETONE NEGATIVE (NEGATIVE); MUCUS <1+ /lpf (NONE SEEN); NITRITE POSITIVE (NEGATIVE); PROTEIN NEGATIVE (NEGATIVE); RED CELLS - URINE OCC /hpf (0-5); UROBILINOGEN NORMAL (NORMAL)
[2017-03-24 11:39] LABS: AMORPHOUS SEDIMENT <1+ /lpf (NONE SEEN)
[2017-03-24 11:43] LABS: CALC OSMOLALITY 274 mosm/kg (275-300); CALCIUM 9.5 mg/dL (8.5-10.1); CARBON DIOXIDE 29.3 mmol/L (21.0-32.0); CHLORIDE - SERUM 99 mmol/L (98-107); CREATININE - SERUM 0.8 mg/dL (0.6-1.3); GLUCOSE 95 mg/dL (74-106); POTASSIUM - SERUM 3.9 mmol/L (3.5-5.1); SODIUM 137 mmol/L (136-145); UREA NITROGEN 16 mg/dL (7-18); eGFR NON AFRICAN AMERICAN 77 mL/min (90-120)
[2017-03-24 11:48] LABS: APTT 23.2 SECONDS (22.8-39.4); INR 0.94 (0.85-1.17); PROTIME 12.2 SECONDS (11.6-15.0)
[2017-03-30] MEDS ORDERED: ALENDRONATE SOD10 MG PO (06:13)
[2017-03-30 06:21] VITALS: BP 105/64; Ht 157.5 cm; Wt 61.2 kg
[2017-03-30 11:21] VITALS: BP 122/64
[2017-03-30 16:04] VITALS: BP 95/53
[2017-03-30 22:00] VITALS: BP 87/52
[2017-03-31 04:00] VITALS: BP 99/62
[2017-03-31 05:21] LABS: BASOPHILS 0.1 % (0-2); EOSINOPHILS 0 % (0-7); HEMATOCRIT 34.9 % (36.0-48.0); HEMOGLOBIN 11.3 g/dL (12-16); IMMATURE GRANULOCYTES 0.3 % (0-5); LYMPHOCYTES 20.5 % (15-50); MCH 31.2 pg (26.0-34.0); MCHC 32.4 g/dL (31.0-37.0); MCV 96.4 fL (80.0-100.0); MEAN PLATELET VOLUME 10.6 fL (7.4-10.4); MONOCYTES 13.2 % (2-11); NEUTROPHILS 65.9 % (40-80); RBC 3.62 10x6/uL (4.00-5.40); RDW 14.2 % (11.5-14.5); WBC 9.9 10x3/uL (4.8-10.8)
[2017-03-31 05:45] LABS: ALBUMIN 2.8 g/dL (3.4-5.0); ALKALINE PHOSPHATASE 50 U/L (46-116); ALT (SGPT) 14 U/L (10-68); BILIRUBIN - TOTAL 0.17 mg/dL (0.2-1.3); CALC OSMOLALITY 276 mosm/kg (275-300); CALCIUM 8.6 mg/dL (8.5-10.1); CARBON DIOXIDE 27.9 mmol/L (21.0-32.0); CHLORIDE - SERUM 105 mmol/L (98-107); CREATININE - SERUM 0.7 mg/dL (0.6-1.3); GLUCOSE 109 mg/dL (74-106); POTASSIUM - SERUM 4.4 mmol/L (3.5-5.1); PROTEIN - SERUM 6.3 g/dL (6.4-8.2); SODIUM 138 mmol/L (136-145); UREA NITROGEN 13 mg/dL (7-18); eGFR NON AFRICAN AMERICAN 90 mL/min (90-120)
[2017-03-31 05:52] LABS: PLATELET COUNT 193 10x3/uL (130-400)
[2017-03-31 10:57] VITALS: BP 113/58
[2017-03-31 12:45] VITALS: BP 114/61
[2017-03-31 16:45] VITALS: BP 112/60
[2017-03-31 20:00] VITALS: BP 142/72
[2017-04-01] MEDS ORDERED: ELIQUIS2.5 MG PO (06:19)
[2017-04-01] MEDS ORDERED: OXYCODONE HCL5 MG PO (06:19)
[2017-04-01] MEDS ORDERED: KEFLEX500 MG PO (06:20)
[2017-04-01 07:44] LABS: HEMOGLOBIN 10.2 g/dL (12-16); LYMPHOCYTES 23.4 % (15-50); MCH 31.2 pg (26.0-34.0); MCHC 32.9 g/dL (31.0-37.0); MCV 94.8 fL (80.0-100.0); MEAN PLATELET VOLUME 9.7 fL (7.4-10.4); NEUTROPHILS 65.2 % (40-80); RBC 3.27 10x6/uL (4.00-5.40); RDW 14.4 % (11.5-14.5); WBC 9.9 10x3/uL (4.8-10.8)
[2017-04-01 07:53] LABS: PLATELET COUNT 147 10x3/uL (130-400)
[2017-04-01 08:10] LABS: ALBUMIN 2.7 g/dL (3.4-5.0); ALKALINE PHOSPHATASE 54 U/L (46-116); ALT (SGPT) 14 U/L (10-68); CALC OSMOLALITY 277 mosm/kg (275-300); CALCIUM 8.1 mg/dL (8.5-10.1); CARBON DIOXIDE 29.3 mmol/L (21.0-32.0); CHLORIDE - SERUM 102 mmol/L (98-107); CREATININE - SERUM 0.6 mg/dL (0.6-1.3); GLUCOSE 108 mg/dL (74-106); PROTEIN - SERUM 6.5 g/dL (6.4-8.2); SODIUM 139 mmol/L (136-145); UREA NITROGEN 11 mg/dL (7-18); eGFR NON AFRICAN AMERICAN > 90 mL/min (90-120)
[2017-04-01 09:03] VITALS: BP 119/76
== END 2017-04-01 10:50 | disposition home or self-care (01) | DRG 470 ==
LOC: D.SDCHOLD 10:00 → D.MS 03-30 04:45 → D.SDCHOLD 03-30 04:45 → D.MS 03-30 11:14
PROVIDERS: Emergency Medicine; Orthopaedic Surgery
PROC: 0SRD0J9 Replacement of Left Knee Joint with Synthetic Substitute, Cemented, Open Approach (ICD-10-PCS; principal; 2017-03-30 07:30)
PROC: 0QPH04Z Removal of Internal Fixation Device from Left Tibia, Open Approach (ICD-10-PCS; 2017-03-30 07:30)
DX: M17.32 Unilateral post-traumatic osteoarthritis, left knee (principal); S82.142S Displaced bicondylar fracture of left tibia, sequela; X58.XXXS Exposure to other specified factors, sequela; M21.062 Valgus deformity, not elsewhere classified, left knee; M25.762 Osteophyte, left knee

== ENCOUNTER → 2017-11-18 12:22 | Outpatient (CLI) | payer MEDICARE ==
[2017-03-30 06:21] VITALS: BMI 24.7
[~2017-11-18 12:22] MED LIST changes: +ALENDRONATE SOD10 MG PO
== END | disposition home or self-care (01) ==
LOC: D.LABREF 12:22
DX: M17.11 Unilateral primary osteoarthritis, right knee (principal); Z11.8 Encounter for screening for other infectious and parasitic diseases

== ENCOUNTER → 2017-12-01 18:35 | Outpatient (CLI) | payer MEDICARE ==
[2017-03-30 06:21] VITALS: BMI 24.7
== END | disposition home or self-care (01) ==
LOC: D.MAMMO 11-17 13:00
DX: Z12.31 Encounter for screening mammogram for malignant neoplasm of breast (principal)

== ENCOUNTER 2017-12-21 05:30 | Inpatient (IN) | payer MEDICARE ==
[2017-12-16 10:41] LABS: BASOPHILS 0.1 % (0-2); EOSINOPHILS 0.7 % (0-7); HEMATOCRIT 41.2 % (36.0-48.0); HEMOGLOBIN 13.7 g/dL (12-16); IMMATURE GRANULOCYTES 0.1 % (0-5); LYMPHOCYTES 39.1 % (15-50); MCH 32.3 pg (26.0-34.0); MCHC 33.3 g/dL (31.0-37.0); MCV 97.2 fL (80.0-100.0); MEAN PLATELET VOLUME 10.5 fL (7.4-10.4); MONOCYTES 6.2 % (2-11); NEUTROPHILS 53.8 % (40-80); PLATELET COUNT 204 10x3/uL (130-400); RBC 4.24 10x6/uL (4.00-5.40); RDW 13.9 % (11.5-14.5); WBC 6.8 10x3/uL (4.8-10.8)
[2017-12-16 10:47] LABS: APPEARANCE CLEAR (CLEAR); BILIRUBIN NEGATIVE (NEGATIVE); COLOR YELLOW (YELLOW); GLUCOSE NEGATIVE (NEGATIVE); KETONE NEGATIVE (NEGATIVE); NITRITE NEGATIVE (NEGATIVE); PROTEIN NEGATIVE (NEGATIVE); SPECIFIC GRAVITY 1.005 (1.005-1.020); UROBILINOGEN NORMAL (NORMAL)
[2017-12-16 10:56] LABS: CALC OSMOLALITY 274 mosm/kg (275-300); CALCIUM 9.8 mg/dL (8.5-10.1); CARBON DIOXIDE 30.8 mmol/L (21.0-32.0); CHLORIDE - SERUM 101 mmol/L (98-107); CREATININE - SERUM 0.8 mg/dL (0.6-1.3); GLUCOSE 100 mg/dL (74-106); POTASSIUM - SERUM 3.8 mmol/L (3.5-5.1); SODIUM 137 mmol/L (136-145); UREA NITROGEN 15 mg/dL (7-18); eGFR NON AFRICAN AMERICAN 76 mL/min (90-120)
[2017-12-16 11:02] LABS: APTT 23.7 SECONDS (22.8-39.4); INR 0.95 (0.85-1.17); PROTIME 12.3 SECONDS (11.6-15.0)
[~2017-12-21] VITALS: Ht 157.5 cm; Wt 62.3 kg
[2017-12-21] VITALS (8 sets, daily range): BP systolic 91–120; BP diastolic 44–72; Ht 157.5 cm; Wt 62.3 kg
--- NOTE | ~2017-12-21 | OP ---
PATIENT NAME: AURORA KOLB MEDICAL RECORD: [id number] :51 LOCATION:D.MS [place] ADMISSION DATE:12/21/17 SURGEON: JUN CHAVES DO DATE OF OPERATION: 12/21/2017 PROCEDURE PERFORMED: Right total knee arthroplasty. 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 INDICATIONS: Ms. Kolb is a 62-year-old female who underwent left total knee arthroplasty early this year and her right knee started to collapse into valgus like her left knee did. She said this really inhibits her ability to walk a lot and she was having problems with increasing pain. She tried injections, but that did not really help and other means of conservative management including home physical therapy. She asked to have a total knee replacement done due to the effects of it on her activities of daily living. She is aware of the risks and benefits including infection, bleeding, damage to nerve and vessels, need for further surgery, fracture and consented to the procedure. SURGEON: Jun Chaves DO DESCRIPTION OF PROCEDURE: The patient was taken to the operative suite, given general anesthetic. After a block by anesthesia, the right lower extremity was prepped and draped in sterile fashion. The patient was given 2 grams Ancef preoperatively and gentamicin. Timeout was performed, everyone was in agreement with correct side, site, patient and procedure. After this was performed, the incision was marked out on the midline of the knee and then this was covered with Ioban. Incision was then made over the marking down to the capsule. All vessels were coagulated with Aquamantys or the PlasmaBlade as we went through the procedure as the tourniquet was not used. Capsule was exposed and then a fresh 10 blade was used to perform the capsulotomy in medial parapatellar approach down to the knee, the patella was then subluxed and milled to fit a 28 size poly and then retractors were placed in the knee. The femoral canal was entered. Distal femur was cut in 3 degrees of valgus due to the already valgus deformity, the cutter banana room in 5 degrees is normal. Once the distal femur was cut, the tibia was exposed and it was cut. The proximal tibia was cut and then the lamina local company flatbed truck driver was used to open up the joint. An Army-Kingstree was used and the menisci removed from either side and coagulation of the medial and lateral genicular arteries were done at that time with the Aquamantys as well as the posterior capsule. The knee was then flexed up and measured to be 65 femur. This was sized and cut with 4-in-1 cutting block and then the PS was punched out. The tibia was then floated in and had some tightness on the medial side. The tibia had to be slightly recut in order to accommodate the tibial tray. The tibial tray was noted to be 71 and it was floated in and marked and then the patella was drilled. All the trials were removed and the tibia was sized to be 71. This was put in place, punched and milled and drilled and irrigated thoroughly and then the cement was mixed, put into the tibia and on the tibial implant. This was impacted in place twice with excess cement being removed. Femur was then placed as well as a 10 poly in between them. The leg was brought into extension. Excess cement was removed at that time as well and then the patella with squeezer was put on. Excess cement was removed from that. Once OPERATIVE REPORT [id number] AURORA KOLB the cement had dried, 10 poly and 12 poly were trialed, 10 poly seemed to fit much better and a 10 poly PS was put in. The locking mechanism for the tibial tray and a tibial poly was then put in as well. The knee was thoroughly irrigated and then vancomycin powder and Surgicel beads were then placed in the gutters and on the knee itself. The capsule was then closed with #1 Runners in ramsyt-hx-mpmkr fashion and then #1 Stratafix was ran along the capsule. The skin was then irrigated on top of the capsule and more vancomycin powder and Surgicel beads were placed. The skin was closed with 2-0 Vicryl and then the ZipLine was placed on the knee. Adaptic, 4 x 4s, ABD, Webril and Silverio wrap were then placed on the knee. SAUL hose stockings placed up to the knee. BLOOD LOSS: Approximately 150 mL. COMPLICATIONS: None. TRANSINT:[id number] Voice Confirmation ID: [id number] DOCUMENT ID: [id number] JUN CHAVES DO at 1531 CC: [id number] DICTATION DATE: 12/21/17 1108 TERRAZZO TILE SETTER: 12/21/17 1314 ADM IN [facility] [address] [place] [id number]
[2017-12-22 05:13] VITALS: BP 102/84
[2017-12-22 05:55] LABS: BASOPHILS 0.1 % (0-2); EOSINOPHILS 0.3 % (0-7); HEMATOCRIT 33.5 % (36.0-48.0); HEMOGLOBIN 10.7 g/dL (12-16); IMMATURE GRANULOCYTES 0.2 % (0-5); MCH 31.5 pg (26.0-34.0); MCHC 31.9 g/dL (31.0-37.0); MCV 98.5 fL (80.0-100.0); MEAN PLATELET VOLUME 10.8 fL (7.4-10.4); MONOCYTES 10.7 % (2-11); NEUTROPHILS 62.7 % (40-80); PLATELET COUNT 181 10x3/uL (130-400); RDW 13.9 % (11.5-14.5); WBC 10.1 10x3/uL (4.8-10.8)
[2017-12-22 06:17] LABS: ALBUMIN 2.8 g/dL (3.4-5.0); ALKALINE PHOSPHATASE 42 U/L (46-116); ALT (SGPT) 13 U/L (10-68); BILIRUBIN - TOTAL 0.21 mg/dL (0.2-1.3); CALC OSMOLALITY 276 mosm/kg (275-300); CALCIUM 8.1 mg/dL (8.5-10.1); CARBON DIOXIDE 29.7 mmol/L (21.0-32.0); CHLORIDE - SERUM 105 mmol/L (98-107); CREATININE - SERUM 0.8 mg/dL (0.6-1.3); GLUCOSE 89 mg/dL (74-106); POTASSIUM - SERUM 4.1 mmol/L (3.5-5.1); PROTEIN - SERUM 6.3 g/dL (6.4-8.2); SODIUM 139 mmol/L (136-145); UREA NITROGEN 12 mg/dL (7-18); eGFR NON AFRICAN AMERICAN 76 mL/min (90-120)
[2017-12-22 09:44] VITALS: BP 110/62
[2017-12-22 17:42] VITALS: BP 89/50
[2017-12-23 06:20] VITALS: BP 123/68
[2017-12-23 06:34] LABS: BASOPHILS 0.1 % (0-2); EOSINOPHILS 0.1 % (0-7); HEMATOCRIT 32.4 % (36.0-48.0); HEMOGLOBIN 10.5 g/dL (12-16); IMMATURE GRANULOCYTES 0.1 % (0-5); MCH 31.4 pg (26.0-34.0); MCHC 32.4 g/dL (31.0-37.0); MEAN PLATELET VOLUME 10.5 fL (7.4-10.4); MONOCYTES 13.7 % (2-11); PLATELET COUNT 146 10x3/uL (130-400); RBC 3.34 10x6/uL (4.00-5.40); WBC 9.1 10x3/uL (4.8-10.8)
[2017-12-23 06:54] LABS: ALBUMIN 2.7 g/dL (3.4-5.0); ALKALINE PHOSPHATASE 46 U/L (46-116); ALT (SGPT) 12 U/L (10-68); CALCIUM 8.1 mg/dL (8.5-10.1); CARBON DIOXIDE 30.3 mmol/L (21.0-32.0); CHLORIDE - SERUM 100 mmol/L (98-107); CREATININE - SERUM 0.7 mg/dL (0.6-1.3); PROTEIN - SERUM 6.6 g/dL (6.4-8.2); SODIUM 136 mmol/L (136-145); eGFR NON AFRICAN AMERICAN 89 mL/min (90-120)
[2017-12-23 06:56] LABS: CALC OSMOLALITY 271 mosm/kg (275-300); GLUCOSE 135 mg/dL (74-106); POTASSIUM - SERUM 3.4 mmol/L (3.5-5.1); UREA NITROGEN 6 mg/dL (7-18)
[2017-12-23] MEDS ORDERED: ELIQUIS2.5 MG PO (08:00)
[2017-12-23] MEDS ORDERED: VISTARIL50 MG PO (08:01)
[2017-12-23] MEDS ORDERED: OXYCODONE HCL5 M1 PO (08:01)
[2017-12-23] MEDS ORDERED: KEFLEX500 MG PO (08:02)
[2017-12-23 09:33] VITALS: BP 129/66
== END 2017-12-23 11:49 | disposition home or self-care (01) | DRG 470 ==
LOC: D.SDCHOLD 05:30 → D.MS 11:55
PROVIDERS: Family Medicine; Orthopaedic Surgery
PROC: 0SRC0J9 Replacement of Right Knee Joint with Synthetic Substitute, Cemented, Open Approach (ICD-10-PCS; principal; 2017-12-21 08:00)
DX: M17.11 Unilateral primary osteoarthritis, right knee (principal); J44.9 Chronic obstructive pulmonary disease, unspecified; M81.0 Age-related osteoporosis without current pathological fracture; Z87.891 Personal history of nicotine dependence; D64.9 Anemia, unspecified

== ENCOUNTER → 2017-12-27 10:46 | Outpatient (CLI) | payer MEDICARE ==
[2017-12-21 12:33] VITALS: BMI 25.1
[~2017-12-27 10:46] MED LIST changes: +OXYCODONE HCL5 M1 PO; +VISTARIL50 MG PO
== END | disposition home or self-care (01) ==
LOC: D.US 10:30
DX: R60.0 Localized edema (principal)

== ENCOUNTER → 2018-06-01 08:58 | Outpatient (CLI) | payer MEDICARE ==
[2017-12-21 12:33] VITALS: BMI 25.1
== END | disposition home or self-care (01) ==
LOC: D.RAD 08:58
PROVIDERS: ATTEND Orthopaedic Surgery
DX: S43.432A Superior glenoid labrum lesion of left shoulder, initial encounter (principal)

== ENCOUNTER 2018-06-03 16:50 | Inpatient (IN) | payer MEDICARE ==
[~2018-06-03] VITALS: Ht 157.5 cm; Wt 62.1 kg
[2018-06-17 15:52] LABS: HEMATOCRIT 38.7 % (36.0-48.0); HEMOGLOBIN 12.9 g/dL (12-16); LYMPHOCYTES 39.1 % (15-50); MCH 32.5 pg (26.0-34.0); MCHC 33.3 g/dL (31.0-37.0); MCV 97.5 fL (80.0-100.0); MEAN PLATELET VOLUME 9.8 fL (7.4-10.4); NEUTROPHILS 54.3 % (40-80); RBC 3.97 10x6/uL (4.00-5.40); RDW 14.5 % (11.5-14.5)
[2018-06-17 15:53] LABS: PLATELET COUNT 207 10x3/uL (130-400)
[2018-06-17 15:55] LABS: CALC OSMOLALITY 274 mosm/kg (275-300); CALCIUM 8.7 mg/dL (8.5-10.1); CARBON DIOXIDE 29.4 mmol/L (21.0-32.0); CHLORIDE - SERUM 100 mmol/L (98-107); CREATININE - SERUM 0.7 mg/dL (0.6-1.3); GLUCOSE 97 mg/dL (74-106); INR 1.04 (0.85-1.17); POTASSIUM - SERUM 3.7 mmol/L (3.5-5.1); PROTIME 13.1 SECONDS (11.6-15.0); SODIUM 137 mmol/L (136-145); UREA NITROGEN 14 mg/dL (7-18); eGFR NON AFRICAN AMERICAN 89 mL/min (90-120)
[2018-06-17 16:04] LABS: APPEARANCE CLEAR (CLEAR); BILIRUBIN NEGATIVE (NEGATIVE); COLOR YELLOW (YELLOW); GLUCOSE NEGATIVE (NEGATIVE); KETONE NEGATIVE (NEGATIVE); NITRITE NEGATIVE (NEGATIVE); PROTEIN NEGATIVE (NEGATIVE); UROBILINOGEN NORMAL (NORMAL)
[2018-06-21 07:54] VITALS: BP 120/62; BMI 25.1
[2018-06-21 12:00] VITALS: BP 132/72
--- NOTE | 2018-06-21 13:28 | OP ---
PATIENT NAME: AURORA KOLB MEDICAL RECORD: [id number] :51 LOCATION:D.[facility] [place] ADMISSION DATE:06/21/18 SURGEON: KP CHAVES DO DATE OF OPERATION: 06/21/2018 PROCEDURE PERFORMED: Left reverse total shoulder arthroplasty. PREOPERATIVE DIAGNOSIS: Left shoulder rotator cuff tear arthropathy. POSTOPERATIVE DIAGNOSIS: Left shoulder rotator cuff tear arthropathy. INDICATIONS: Ms. Kolb is a 63-year-old female, who presented to my office with left shoulder pain that has been giving her pain for quite a few years. She said she fell several years ago and has had pain and weakness in that shoulder since. She underwent an MRI, which demonstrated a full-thickness retracted tear of the supraspinatus tendon with muscle fatty atrophy in it, greater than 50%. I informed her that I would likely not be able to repair those and that a reverse would be the best way to get the function of her shoulder back and strength. She is aware of the risks including infection, bleeding, damage to nerves and vessels, need for further surgery and fracture and signed the consent. SURGEON: Kp Chaves DO I was assisted by Jerardo Sultana, advanced nurse practitioner. He assisted with retraction and closing. This procedure could not have been performed without his assistance. DESCRIPTION OF PROCEDURE: The patient received a block by anesthesia in the preoperative area and taken to the operative suite, laid in supine position, given general anesthetic and LMA was placed. The patient was given 900 mg of clindamycin preoperatively. She was then placed in the beach chair position and the left shoulder was prepped and draped in sterile fashion. A time-out was performed. Everyone was in agreement with the correct side, site, patient, and procedure. Incision then was marked out along the deltopec interval and the skin and then an incision was made with a 15 blade scalpel. Then, the plasma blade was used to dissect down to the cephalic vein. Once the cephalic vein was identified, it was taken laterally and the adhesions on the deltoid were removed in the subacromial space with a Valle. A Brown retractor was then used to expose the humeral head and then the proximal centimeter of the pec was removed. The bicep tendon was then tenodesed to the stump side of the pec tendon and then cut and followed up into the joint proximally opening up the rotator interval. The subscapularis was then tagged and peeled off of the humeral lesser tuberosity and the humeral head was exposed. Intramedullary guide was then placed on the humerus and the humeral head was cut. The glenoid was then exposed and a centering pin was placed in the glenoid. Then, a reamer was put in and the centering pin hole was drilled over the centering pin. Then, this was centered and the drill was used to drill through the glenoid. It was measured to be a 35. A 35 screw with 25 baseplate was then placed with good secure fixation and then 3 peripheral screws were placed, first in the superior anterior 22 screw, then a posterior superior and posterior inferior, 14 each. Once those screws were placed, a 33 glenosphere lateralized was placed and impacted in and then screwed and secured to the baseplate. The humeral head was then exposed and broaching began and up to a 4. The 4 fit very well. This was then trialed with a 6 poly and it had a little bit of laxity. In order to tighten it up, put a 9 poly in and this fit very well, had good range of motion and the conjoint tendon was appropriate tautness as well as the deltoid fibers. The shoulder had good OPERATIVE REPORT [id number] AURORA KOLB range of motion and was very stable in all planes. This was then dislocated and then this was removed. The actual implant was put into place, a 4 stem with a 9 poly. This was reduced with the assistance of a slide and had good motion and it was appropriately placed. The shoulder was then thoroughly irrigated. A drain was placed and a Surgicel powder as well as vancomycin and tobramycin powder were put into the shoulder joint. The patient did receive a gram of TXA during the procedure. The incision was then closed with 2-0 Vicryl in an inverted interrupted fashion, 4-0 Monocryl ran on the skin, and then a Prineo placed on the skin. The drain was secured with 2 Tegaderms, and a Telfa and Tegaderm were then placed over the Prineo once it had dried. The patient was then awakened, put in a sling and taken to recovery in stable condition. Blood loss was approximately 200 mL. Complications were none. TRANSINT:[id number] Voice Confirmation ID: [id number] DOCUMENT ID: [id number] KP CHAVES DO at 1328 CC: [id number] DICTATION DATE: 06/21/18 1203 PARALEGAL ASSISTANT: 06/21/18 1247 ADM IN [place] [id number] [place] [id number]
--- NOTE | 2018-06-21 13:46 | NUR ---
PT TO FLOOR VIA BED. IN ROOM. VITALS STABLE. DENIES PAIN AT THIS TIME. C/O DISCOMFORT TO L SHOULDER. C/O BEING HUNGRY. MIKEY STOVALL PROVIDED. R FOREARM IV WITH 0.45 NS @ 75 CC/HR. DRAIN TO L SHOULDER NOTED WITH DARK RED DRAINAGE. L ARM/SHOULDER IN SLING AT THIS TIME. NO FURTHER CONCERNS AT THIS TIME. BED LOWERED AND LOCKED. CL IN REACH. WILL CPOC.
--- NOTE | 2018-06-21 15:26 | NUR ---
ASSISTED PT ONTO BEDPAN. NO DIFFICULTIES NOTED. TOOK MEDICATIONS WITHOUT DIFFICULTY. WILL CPOC.
--- NOTE | 2018-06-21 17:11 | NUR ---
PT TOOK PROTONIX WITHOUT DIFFICULTY. SCD'S ON. NO MACHINE IN ROOM OR ON BED. WILL FIND SCD MACHINE.
[2018-06-21 18:21] VITALS: Ht 157.5 cm; Wt 62.1 kg
[2018-06-21 18:36] VITALS: BP 87/70
--- NOTE | 2018-06-21 20:00 | NUR ---
ASSESSMENT PER FLOWSHEET. IV ON RT ARM SITE HARD AND SWOLLEN AT SITE REMOVED IV WITH TIP INTACT. RESITED IV TO RT HAND #20 G X1 ATTEMPT RESUMED IV FLUIDS OF NS AT 75CC'S/HR. DRESSING TO LEFT SHOULDER INCISION C/D/I W/SLING IN PLACE. VOIDS ON BEDPAN. O2 REMOVED AT PT'S REQUEST O2 SAT RUNNIING 95-97 % ON ROOM AIR. NO DISTRESS. HEMAVAC IN PLACE AND COMPRESSED. SCANT AMOUNT OF BLOODY DRAINAGE NOTED.
[2018-06-21 21:12] VITALS: BP 94/52
--- NOTE | 2018-06-21 22:00 | NUR ---
SITTING UPRIGHT IN BED READING HER BOOK.
--- NOTE | 2018-06-22 | NUR ---
REPOSITIONED IN BED SR UP CALL LIGHT WITHIN REACH HOB LOWERED TO 30 DEGRESS FOR REST.
[2018-06-22 05:09] VITALS: BP 104/60
--- NOTE | 2018-06-22 05:12 | NUR ---
C/O INCISIONAL PAIN RATES PAIN LEVEL #8. OXY IR 10MG PO GIVEN FOR PAIN CONTROL.
--- NOTE | 2018-06-22 05:30 | NUR ---
UP TO BR WITH HELP AND SLING ON VOIDED IN BATHROOM. ASSISTED BACK TO BED TOLERATED WELL.
[2018-06-22 06:40] LABS: BASOPHILS 0.1 % (0-2); EOSINOPHILS 0.3 % (0-7); HEMATOCRIT 35.3 % (36.0-48.0); HEMOGLOBIN 11.4 g/dL (12-16); IMMATURE GRANULOCYTES 0.3 % (0-5); MCH 31.4 pg (26.0-34.0); MCHC 32.3 g/dL (31.0-37.0); MCV 97.2 fL (80.0-100.0); MEAN PLATELET VOLUME 10.3 fL (7.4-10.4); MONOCYTES 10.4 % (2-11); NEUTROPHILS 64.9 % (40-80); PLATELET COUNT 207 10x3/uL (130-400); RBC 3.63 10x6/uL (4.00-5.40); RDW 14.1 % (11.5-14.5); WBC 10.4 10x3/uL (4.8-10.8)
[2018-06-22 06:54] LABS: ALBUMIN 2.9 g/dL (3.4-5.0); ALKALINE PHOSPHATASE 45 U/L (46-116); ALT (SGPT) 17 U/L (10-68); BILIRUBIN - TOTAL 0.18 mg/dL (0.2-1.3); CALC OSMOLALITY 279 mosm/kg (275-300); CARBON DIOXIDE 30.2 mmol/L (21.0-32.0); CHLORIDE - SERUM 103 mmol/L (98-107); CREATININE - SERUM 0.8 mg/dL (0.6-1.3); GLUCOSE 105 mg/dL (74-106); PROTEIN - SERUM 6.7 g/dL (6.4-8.2); SODIUM 139 mmol/L (136-145); UREA NITROGEN 18 mg/dL (7-18); eGFR NON AFRICAN AMERICAN 76 mL/min (90-120)
--- NOTE | 2018-06-22 08:34 | NUR ---
PT RESTING IN BED. CO OF PAIN TO L SHOULDER , "OXY DOES NOTE PHASE ME" DISCUSSED GIVEN TORDOL PER MD ORDER. PT AGREED. NO S/S OF ACUTE DISTRESS. CL IN PLACE.
[2018-06-22 09:35] VITALS: BP 98/58
[2018-06-22] MEDS ORDERED: OXYCODONE HCL5 M1 PO (09:44)
[2018-06-22] MEDS ORDERED: KEFLEX500 MG PO (09:45)
--- NOTE | 2018-06-22 11:48 | NUR ---
DC INSTRUCTIONS AND EDUCATION GIVEN TO PT AND . IV DC WITH TIP INTACT. ALL BELONGINGS TAKEN DOWN BY . PT TAKEN DOWN BY VOLUNTEER VIA WC. NO S/S OF ACUTE DISTRESS.
== END 2018-06-22 11:45 | disposition home or self-care (01) | DRG 483 ==
LOC: D.SDCHOLD 06-21 07:34 → D.MS 06-21 12:55
PROVIDERS: Family Medicine; ADMIT Orthopaedic Surgery; ATTEND Orthopaedic Surgery
PROC: 0RRK00Z Replacement of Left Shoulder Joint with Reverse Ball and Socket Synthetic Substitute, Open Approach (ICD-10-PCS; principal; 2018-06-21 10:00)
DX: M75.122 Complete rotator cuff tear or rupture of left shoulder, not specified as traumatic (principal); F17.213 Nicotine dependence, cigarettes, with withdrawal; D62 Acute posthemorrhagic anemia; M17.11 Unilateral primary osteoarthritis, right knee; J44.9 Chronic obstructive pulmonary disease, unspecified; G62.9 Polyneuropathy, unspecified; M81.0 Age-related osteoporosis without current pathological fracture

== ENCOUNTER 2018-10-19 15:03 | Inpatient (IN) | payer MEDICARE ==
[~2018-10-19] VITALS: Ht 157.5 cm; Wt 60.9 kg
[2018-11-07] MEDS ORDERED: MAGNESIUM OXID250 MG PO (09:51)
[2018-11-07 10:39] LABS: BASOPHILS 0.2 % (0-2); EOSINOPHILS 12.9 % (0-7); HEMATOCRIT 42.9 % (36.0-48.0); HEMOGLOBIN 14.6 g/dL (12-16); IMMATURE GRANULOCYTES 0.2 % (0-5); LYMPHOCYTES 28.5 % (15-50); MCV 96.8 fL (80.0-100.0); MEAN PLATELET VOLUME 10.2 fL (7.4-10.4); MONOCYTES 6.1 % (2-11); NEUTROPHILS 52.1 % (40-80); PLATELET COUNT 218 10x3/uL (130-400); RBC 4.43 10x6/uL (4.00-5.40); RDW 13.7 % (11.5-14.5); WBC 9.5 10x3/uL (4.8-10.8)
[2018-11-07 10:44] LABS: CALC OSMOLALITY 273 mosm/kg (275-300); CALCIUM 9.2 mg/dL (8.5-10.1); CARBON DIOXIDE 30.6 mmol/L (21.0-32.0); CHLORIDE - SERUM 98 mmol/L (98-107); CREATININE - SERUM 0.8 mg/dL (0.6-1.3); GLUCOSE 91 mg/dL (74-106); POTASSIUM - SERUM 3.9 mmol/L (3.5-5.1); SODIUM 136 mmol/L (136-145); UREA NITROGEN 17 mg/dL (7-18); eGFR NON AFRICAN AMERICAN 76 mL/min (90-120)
[2018-11-07 10:47] LABS: APTT 23.1 SECONDS (22.8-39.4); INR 0.96 (0.85-1.17); PROTIME 12.3 SECONDS (11.6-15.0)
[2018-11-07 10:55] LABS: APPEARANCE CLEAR (CLEAR); BILIRUBIN NEGATIVE (NEGATIVE); COLOR YELLOW (YELLOW); GLUCOSE NEGATIVE (NEGATIVE); KETONE NEGATIVE (NEGATIVE); NITRITE NEGATIVE (NEGATIVE); PROTEIN NEGATIVE (NEGATIVE); UROBILINOGEN NORMAL (NORMAL)
[2018-11-08] VITALS (13 sets, daily range): BP systolic 94–118; BP diastolic 46–71; Ht 157.5 cm; Wt 60.9 kg
--- NOTE | 2018-11-08 11:40 | NUR ---
PLASMA BLADE SET TO 6/8 BOVIE PAD RIGHT FLANK [id number] EXP 05/27/20
--- NOTE | 2018-11-08 14:36 | OP ---
PATIENT NAME: AURORA KOLB MEDICAL RECORD: [id number] :51 LOCATION:[id number] ADMISSION DATE:11/08/18 SURGEON: KP CHAVES DO DATE OF OPERATION: 11/08/2018 PROCEDURE PERFORMED: Right reverse total shoulder arthroplasty. PREOPERATIVE DIAGNOSIS: Right shoulder rotator cuff arthropathy. POSTOPERATIVE DIAGNOSIS: Right shoulder rotator cuff arthropathy. INDICATIONS: Ms. Kolb is a 63-year-old female who has had right shoulder pain for years. She is tired of dealing with the pain and she cannot lift anything and did not have any strength and I got an MRI, showed a complete tear of the supraspinatus with retraction and with fatty infiltration in the supraspinatus tendon and muscle belly. I told her that she had the same thing done on the left for the same reason that a reverse would be the best option for her. She had good results with the reverse on the left and she is wanting to have that done on the right as well. She is tired of dealing with the pain and weakness. I informed her of the risks including infection, fracture, bleeding, need for further surgery, continued pain. She was okay with that and signed the consent. SURGEON: Kp Chaves DO DESCRIPTION OF PROCEDURE: The patient was given a block by anesthesia in the preoperative area, was taken to the operating suite, placed in supine position, sedated and intubated, given 900 mg of clindamycin preoperatively and a gram of TXA. She was positioned on the beach chair. The right shoulder was prepped and draped in sterile fashion. Timeout was performed, everyone was in agreement of the correct side, site, patient and procedure. Once that was completed, the incision was made over the deltopectoral interval. Careful dissection was made down through the skin to the deltopectoral interval. The proximal centimeter of the pec was removed off the humerus and then the bicep tendon was tagged and sutured to the remnant of the pectoral tendon on the humerus. The subscap was then tagged and peeled off of the humerus and the humeral head was exposed. The cutting guide was then used and the humeral head was cut. The glenoid was then exposed. The labrum was removed from around it. The centering pin for the glenosphere was placed. Then, the reamer was used and the PEG drill was used. This was measured and seemed to be a 35. A 35 screw was then used on the baseplate. Baseplate was put into place and 3 peripheral screws were placed. Once the screws were placed, the glenosphere was impacted on and tightened down. The humerus was then exposed and broaching began up to a 4. The 4 fit well and then a planer was used. Once the 4 was in, trial was done with a 6 poly and fit very well, had good tension on the conjoined tendon as well as the deltoid fibers. This was then dislocated and then the trial was removed. The implant was put into place and impacted and then reduced. She had good range of motion and again had very good tautness on the conjoined tendon and no shucking was seen at all. No separation between the poly and the glenosphere. The site was then thoroughly irrigated. Surgicel powder, vancomycin and tobramycin powder were placed and then a drain was placed and a poke hole was made in the lateral shoulder and drain was brought out through the lateral shoulder and a small suture was used in the poke hole for the drain, closed it up. The interval was then lightly closed with #1 Vicryl in a single interrupted fashion. Skin was then closed with 2-0 Vicryl in inverted interrupted and 4-0 Monocryl ran on the OPERATIVE REPORT [id number] AURORA KOLB skin, Prineo on the skin, and then a Telfa and Tegaderm on the skin and the drain was secured in place with 2 Tegaderms. She was awakened and taken to recovery in stable condition. Blood loss approximately 150 mL. COMPLICATIONS: None. TRANSINT:[id number] Voice Confirmation ID: [id number] DOCUMENT ID: [id number] KP CHAVES DO at 1436 CC: [id number] DICTATION DATE: 11/08/18 1212 CD MIXER: 11/08/18 1253 ADM IN [place] [id number] [place] [address]
[2018-11-08] MEDS ORDERED: NEURONTIN600 MG PO (15:19)
--- NOTE | 2018-11-08 19:45 | NUR ---
A&O X 4. AMBULATORY W/O ASSIST. STATES SHE ONLY REQUIRES HELP SCOOTING OUT OF BED AND WATCHING OUT FOR TUBING. SLING TO RIGHT SHOULDER ING USE. DRESSING TO RIGHT SHOULDER C/D/I, PASCUAL DRAIN PRESENT, DRAINING DARK RED BLOOD. PT DENIES PAIN/NEEDS AT THIS TIME, WILL CONTINUE TO MONITOR.
--- NOTE | 2018-11-09 02:28 | NUR ---
I have reviewed this patient and I concur with the Shift Assessment completed by the Licensed Practical Nurse today this shift.
[2018-11-09 04:00] VITALS: BP 106/69
[2018-11-09 06:18] LABS: HEMATOCRIT 38.4 % (36.0-48.0); HEMOGLOBIN 12.6 g/dL (12-16); MCH 31.5 pg (26.0-34.0); MCHC 32.8 g/dL (31.0-37.0); MEAN PLATELET VOLUME 10.2 fL (7.4-10.4); PLATELET COUNT 196 10x3/uL (130-400); RDW 13.7 % (11.5-14.5)
[2018-11-09 06:25] LABS: WBC 12.7 10x3/uL (4.8-10.8)
[2018-11-09 08:30] VITALS: BP 100/61
[2018-11-09 10:28] LABS: ALBUMIN 3.2 g/dL (3.4-5.0); ALKALINE PHOSPHATASE 64 U/L (46-116); ALT (SGPT) 15 U/L (10-68); BILIRUBIN - TOTAL 0.28 mg/dL (0.2-1.3); CALC OSMOLALITY 274 mosm/kg (275-300); CALCIUM 8.7 mg/dL (8.5-10.1); CHLORIDE - SERUM 103 mmol/L (98-107); CREATININE - SERUM 0.7 mg/dL (0.6-1.3); GLUCOSE 101 mg/dL (74-106); POTASSIUM - SERUM 4.4 mmol/L (3.5-5.1); PROTEIN - SERUM 7.3 g/dL (6.4-8.2); SODIUM 138 mmol/L (136-145); UREA NITROGEN 11 mg/dL (7-18); eGFR NON AFRICAN AMERICAN 89 mL/min (90-120)
[2018-11-09 12:45] VITALS: BP 102/59
[2018-11-09 16:00] VITALS: BP 110/64
[2018-11-09 20:00] VITALS: BP 109/65
--- NOTE | 2018-11-09 20:00 | NUR ---
A/O X4 WITH NO SIGNS OF ACTUE DISTRESS NOTED. RT ARE IN SLING WITH PASCUAL DRAIN LOCATED TO RT SHOULDER WITH BLOODY DISCHARGE NOTED. ASSISTED TO BATHROOM AND REPOSITIONED IN BED. DENIES PAIN OR OTHER NEEDS AT THIS TIME. CONTINUE WITH PLAN OF CARE.
[2018-11-10 04:00] VITALS: BP 127/64
[2018-11-10 06:06] LABS: BASOPHILS 0.1 % (0-2); EOSINOPHILS 9.6 % (0-7); IMMATURE GRANULOCYTES 0.1 % (0-5); LYMPHOCYTES 31.5 % (15-50); MCH 31.8 pg (26.0-34.0); MCHC 32.9 g/dL (31.0-37.0); MCV 96.7 fL (80.0-100.0); MEAN PLATELET VOLUME 10.4 fL (7.4-10.4); MONOCYTES 8.7 % (2-11); RDW 14.1 % (11.5-14.5)
[2018-11-10 06:09] LABS: HEMATOCRIT 29.5 % (36.0-48.0); HEMOGLOBIN 9.7 g/dL (12-16); PLATELET COUNT 126 10x3/uL (130-400); RBC 3.05 10x6/uL (4.00-5.40); WBC 7.5 10x3/uL (4.8-10.8)
--- NOTE | 2018-11-10 07:00 | NUR ---
SITTING UP IN BED, ALERT AND ORIENTED. READY TO GO HOME. NO C/O PAIN. NO S/S OF ACUTE DISTRESS NOTED. CALL LIGHT IN REACH. WILL CONTINUE TO MONITOR.
[2018-11-10] MEDS ORDERED: OXYCODONE HCL5 M1 PO (08:08)
[2018-11-10 08:17] LABS: ALBUMIN 2.8 g/dL (3.4-5.0); ALKALINE PHOSPHATASE 60 U/L (46-116); ALT (SGPT) 15 U/L (10-68); BILIRUBIN - TOTAL 0.38 mg/dL (0.2-1.3); CALC OSMOLALITY 275 mosm/kg (275-300); CALCIUM 8.4 mg/dL (8.5-10.1); CARBON DIOXIDE 32.7 mmol/L (21.0-32.0); CHLORIDE - SERUM 101 mmol/L (98-107); CREATININE - SERUM 0.6 mg/dL (0.6-1.3); GLUCOSE 93 mg/dL (74-106); MAGNESIUM - SERUM 1.4 mg/dL (1.8-2.4); PROTEIN - SERUM 6.4 g/dL (6.4-8.2); SODIUM 139 mmol/L (136-145); eGFR NON AFRICAN AMERICAN > 90 mL/min (90-120)
[2018-11-10 08:18] LABS: UREA NITROGEN 8 mg/dL (7-18)
[2018-11-10 08:38] VITALS: BP 127/70
--- NOTE | 2018-11-10 09:51 | NUR ---
PATIENT DISCHARGED HOME VIA WHEELCHAIR WITH . SENT HOME EXTRA WOUND DRESSINGS. DISCONTINUED IV, CATHETER TIP INTACT. WENT OVER DISCHARGE INSTRUCTIONS WITH PATIENT, PATIENT VERBALIZED UNDERSTANDING. PT DENIES ANY NEEDS.
--- NOTE | 2018-11-10 09:53 | MORECARE ---
CASE MANAGEMENT DISCHARGE SUMMARY PATIENT: AURORA TATE UNIT: [id number] ADM DATE: 11/08/18 AGE: 63 : 53 SEX: F ROOM/BED: D.2211 AUTHOR: DOTTIE BARKER PHYSICIAN: REFERRING PHYSICIAN: KP CHAVES DO DATE OF SERVICE: 11/10/18 Discharge Plan Patient Name: AURORA TATE Facility: [facility]:[place] : 1955 Planned Disposition: Home or Self Care Anticipated Discharge Date: Discharge Date: 11/10/2018 Expected LOS: Initial Reviewer: [email or web address] Initial Review Date: 11/08/2018 Generated: 11/10/18 10:53 am Comments DCP- Discharge Planning Updated by [email or web address]: Rocio Bueno on 11/10/18 8:[address] Patient Name: AURORA TATE Admission Status: Elective Accout number: [id number] Admission Date: 11-08-2018 : 1955 Admission Diagnosis: Attending: KP CHAVES Current LOS: 2 Anticipated DC Date: Planned Disposition: Home or Self Care Primary Insurance: MEDICARE A & B Discharge Planning Comments: CM met with patient to complete initial dc planning assessment. CM educated patient on the CM role and verbal consent given by patient to complete assessment. Patient lives at home with her where she is independent with her care. At discharge patient plans to return home and feels this is a safe discharge. CM discussed availability of home health, rehab services, and medical equipment. She has a cane and walker that she uses at times. Her will be her lease purchase driver home. Patient denied known discharge needs at this time. CM will continue to follow and will assist as needed with dc plans/needs. Sodium Chlorite Operator: Rocio Bueno DCPIA - Discharge Planning Initial Assessment Updated by [email or web address]: Rocio Bueno on 11/10/18 9:43 am * Is the patient Alert and Oriented? Yes * How many steps to enter\exit or inside your home? * PCP ERNST * Pharmacy [facility] * Preadmission Environment Home with Family * ADLs Independent * Equipment Cane Rolling Walker * List name and contact numbers for known caregivers / representatives who currently or will assist patient after discharge: RADHA [phone] * Verbal permission to speak to the caregivers and representatives has been obtained from the patient. N/A * Community resources currently utilized None * Additional services required to return to the preadmission environment? No * Can the patient safely return to the preadmission environment? Yes * Has this patient been hospitalized within the prior 30 days at any hospital? No Patient Name: AURORA TATE Page [id number] at 0953 All edits/amendments must be made on the electronic document DICTATION DATE: 11/10/18952 CYTOLOGY TEACHER: TODD 11/10/1855 RPT#: [id number] DC DATE:11/10/18 STATUS: DIS IN [facility] [address] [place] [address] END OF REPORT
--- NOTE | 2018-11-14 12:09 | MORECARE ---
CASE MANAGEMENT DISCHARGE SUMMARY PATIENT: AURORA TATE UNIT: [id number] ADM DATE: 11/08/18 AGE: 63 : 51 SEX: F ROOM/BED: D.2211 AUTHOR: DOTTIE BARKER PHYSICIAN: REFERRING PHYSICIAN: KP CHAVES DO DATE OF SERVICE: 11/14/18 Discharge Plan Patient Name: AURORA TATE Facility: [facility]:[place] : 1955 Planned Disposition: Home or Self Care Anticipated Discharge Date: Discharge Date: 11/10/2018 Expected LOS: Initial Reviewer: [email or web address] Initial Review Date: 11/08/2018 Generated: 11/14/18 1:09 pm Comments DCP- Discharge Planning Updated by [email or web address]: Rocio Bueno on 11/10/18 8:[address] Patient Name: AURORA TATE Admission Status: Elective Accout number: [id number] Admission Date: 11-08-2018 : 1955 Admission Diagnosis: Attending: KP CHAVES Current LOS: 2 Anticipated DC Date: Planned Disposition: Home or Self Care Primary Insurance: MEDICARE A & B Discharge Planning Comments: CM met with patient to complete initial dc planning assessment. CM educated patient on the CM role and verbal consent given by patient to complete assessment. Patient lives at home with her where she is independent with her care. At discharge patient plans to return home and feels this is a safe discharge. CM discussed availability of home health, rehab services, and medical equipment. She has a cane and walker that she uses at times. Her will be her superintendent drivers home. Patient denied known discharge needs at this time. CM will continue to follow and will assist as needed with dc plans/needs. Car[employer]ckerer Specials: Rocio Bueno DCPIA - Discharge Planning Initial Assessment Updated by [email or web address]: Rocio Bueno on 11/10/18 9:43 am * Is the patient Alert and Oriented? Yes * How many steps to enter\exit or inside your home? * PCP ERNST * Pharmacy [facility] * Preadmission Environment Home with Family * ADLs Independent * Equipment Cane Rolling Walker * List name and contact numbers for known caregivers / representatives who currently or will assist patient after discharge: RADHA [phone] * Verbal permission to speak to the caregivers and representatives has been obtained from the patient. N/A * Community resources currently utilized None * Additional services required to return to the preadmission environment? No * Can the patient safely return to the preadmission environment? Yes * Has this patient been hospitalized within the prior 30 days at any hospital? No Last DP export: 11/10/18 8:53 a Patient Name: AURORA TATE Page 22850 at 1209 All edits/amendments must be made on the electronic document DICTATION DATE: 11/14/18 120 PPAP COORDINATOR: TODD 11/14/18 1209 RPT#: [id number] DC DATE:11/10/18 STATUS: DIS IN [facility] [address] [place] [address] END OF REPORT
== END 2018-11-10 09:53 | disposition home or self-care (01) | DRG 483 ==
LOC: D.SDCHOLD 11-08 07:45 → D.MS 11-08 07:45 → D.SDCHOLD 11-08 10:00 → D.MS 11-08 13:18 → D.SDCHOLD 11-08 13:30 → D.MS 11-10 09:53
PROVIDERS: Family Medicine; ADMIT Orthopaedic Surgery; ATTEND Orthopaedic Surgery
PROC: 0RRJ00Z Replacement of Right Shoulder Joint with Reverse Ball and Socket Synthetic Substitute, Open Approach (ICD-10-PCS; principal; 2018-11-08 10:00)
DX: M75.101 Unspecified rotator cuff tear or rupture of right shoulder, not specified as traumatic (principal); G62.9 Polyneuropathy, unspecified; M19.90 Unspecified osteoarthritis, unspecified site

== ENCOUNTER → 2018-10-31 11:11 | Outpatient (CLI) | payer MEDICARE ==
[~2018-10-31 11:11] MED LIST changes: +HYDROCODON-ACE1 EA10 PO; +MAGNESIUM OXID250 MG PO; +NEURONTIN600 MG PO
== END | disposition home or self-care (01) ==
LOC: D.LABREF 11:11
PROVIDERS: ATTEND Orthopaedic Surgery
DX: M19.011 Primary osteoarthritis, right shoulder (principal)

== ENCOUNTER 2018-11-29 17:18 | Emergency (ER) | payer MEDICARE ==
[~2018-11-29] VITALS: Ht 157.5 cm; Wt 61.4 kg
[~2018-11-29 17:18] MED LIST changes: -HYDROCODON-ACE1 EA10 PO
[2018-11-29 17:52] VITALS: Ht 157.5 cm; Wt 61.4 kg
[2018-11-29] MEDS ORDERED: HYDROCODON-ACE1 EA10 PO (19:03)
[2018-11-29 19:45] VITALS: BP 119/70
[2018-11-30] MEDS ORDERED: OXYCODONE HCL5 M1 PO (13:15)
[2018-11-30] MEDS ORDERED: DURICEF500 MG PO (13:15)
== END 2018-11-29 19:45 | disposition home or self-care (01) ==
LOC: D.ER 17:18
DX: S52.532A Colles' fracture of left radius, initial encounter for closed fracture (principal); W19.XXXA Unspecified fall, initial encounter

== ENCOUNTER 2018-11-30 08:20 | Day surgery (SDC) | payer MEDICARE ==
[~2018-11-30] VITALS: Ht 157.5 cm; Wt 61.2 kg
[~2018-11-30 08:20] MED LIST changes: +HYDROCODON-ACE1 EA10 PO
[2018-11-30 09:52] LABS: HEMATOCRIT 38.9 % (36.0-48.0); HEMOGLOBIN 12.9 g/dL (12-16); MCH 32.3 pg (26.0-34.0); MCHC 33.2 g/dL (31.0-37.0); MCV 97.5 fL (80.0-100.0); MEAN PLATELET VOLUME 9.9 fL (7.4-10.4); RBC 3.99 10x6/uL (4.00-5.40); RDW 14.8 % (11.5-14.5); WBC 9.8 10x3/uL (4.8-10.8)
[2018-11-30 10:23] VITALS: BP 107/61; Ht 157.5 cm; Wt 61.2 kg
[2018-11-30] MEDS ORDERED: DURICEF500 MG PO (13:15)
[2018-11-30] MEDS ORDERED: OXYCODONE HCL5 M1 PO (13:15)
--- NOTE | 2018-11-30 14:48 | NUR ---
1440 FL DIET SERVED.
--- NOTE | 2018-12-01 07:52 | OP ---
PATIENT NAME: AURORA KOLB MEDICAL RECORD: [id number] :51 LOCATION:[facility] ADMISSION DATE: SURGEON: KP CHAVES DO DATE OF OPERATION: 11/30/2018 PROCEDURE PERFORMED: Left distal radius open reduction and internal fixation and excision of a cyst in the right ring finger. INDICATIONS: Ms. Kolb is a 63-year-old female, well known to me and she fell last night onto her left outstretched hand, sustained a left distal radius intra-articular comminuted fracture and then she mentioned she had a cyst on her right ring finger that have been bothering her for a long time. I told her that I could remove the cyst and at the same time do the distal radius fracture, I told her that she was at risk for infection, bleeding, damage to nerves and vessels, failed fixation, need for further surgery, arthritis of the wrist, numbness and tingling and she was okay with those risks and signed the consent. SURGEON: Kp Chaves DO DESCRIPTION OF THE PROCEDURE: The patient was given a block by anesthesia in the preoperative area in the left upper extremity. She was prepped and draped in sterile fashion of bilateral upper extremities. A timeout was performed and everybody was in agreement with the correct side, site, patient, and procedure. She was given 1 gram of Ancef preoperatively. The right hand was then addressed first and the small incision was made over the proximal phalanx of the flexor side or the palmar side of the ring finger where the cyst was with a #15 blade scalpel. Careful dissection was made down, there were 2 cysts, black color in nature, that were removed from the soft tissue, flexor tendon was in good shape. There is no cyst in the tendon. Once I ensured that the cysts were removed, they were put in a specimen cup and sent to lab. The incision was then closed with 4-0 Monocryl in simple fashion. A Band-Aid was placed over the incision. I then addressed the left upper extremity, the left distal radius fracture. Esmarch was used to exsanguinate the left upper extremity, tourniquet was inflated to 250 mmHg and it was up for 74 minutes. Careful dissection was made down over the flexor carpi radialis tendon and then to the pronator quadratus. This was peeled off the radius. This seemed to be a very comminuted intra-articular fracture with bone loss. Once I got an adequate reduction, she still had somewhat of a gap in the articular surface on the AP and in the middle portion between the scaphoid and lunate fossa. This was closed down as well as possible with reduction and I then put the Acumed plate on and put a shaft screw in first to put the plate down very nicely and distal screws were then put in first on the radial side, then the ulnar side, and then in the radiostyloid and giving a nice reduction. Two more shaft screws were then put in and were locked. Once this was done and adequate reduction was seen on AP and lateral films. The tourniquet was let down. Any bleeding was coagulated with the bipolar at that time and the skin was closed with 3-0 Vicryl in inverted interrupted fashion, 4-0 Monocryl ran on the skin. The Prineo glue on the skin. She was then placed in an Adaptic, 4 x 4's, cast padding and then 3 x 12 splint was placed volarly on the wrist. She was awakened and taken to the recovery in stable condition. OPERATIVE REPORT [id number] AURORA KOLB Blood loss was approximately 25 mL. COMPLICATIONS: None. TRANSINT:[id number] Voice Confirmation ID: [id number] DOCUMENT ID: [id number] KP CHAVES DO at 0752 CC: [id number] DICTATION DATE: 11/30/18 1322 KELLY MACHINE OPERATOR: 11/30/181939 [facility] 11/30/18 [facility] [address] [place] [address]
== END 2018-11-30 15:50 | disposition home or self-care (01) ==
LOC: D.OPS 08:20
PROVIDERS: Anesthesiology; ATTEND Orthopaedic Surgery
DX: S52.572A Other intraarticular fracture of lower end of left radius, initial encounter for closed fracture (principal); W18.30XA Fall on same level, unspecified, initial encounter; L72.0 Epidermal cyst

== ENCOUNTER → 2019-11-22 08:32 | Outpatient (CLI) | payer MEDICARE ==
[2018-11-30 10:23] VITALS: BMI 24.7
== END | disposition home or self-care (01) ==
LOC: D.NM 08:32
PROVIDERS: ATTEND Orthopaedic Surgery
DX: M25.511 Pain in right shoulder (principal)

== ENCOUNTER → 2019-12-04 12:26 | Outpatient (CLI) | payer MEDICARE ==
[2018-11-30 10:23] VITALS: BMI 24.7
== END | disposition home or self-care (01) ==
LOC: D.MRI 12:26
PROVIDERS: ATTEND Orthopaedic Surgery
DX: M54.12 Radiculopathy, cervical region (principal)